=== PATIENT | female | born 1945 | race Caucasian/White ===

== ENCOUNTER 2020-04-23 10:15 | Emergency (ER) | payer MEDICARE, MEDICAID, SELFPAY ==
--- NOTE | ~2020-04-23 | XR_ITS ---
XR chest 1V portable DATE: 04/23/2020 11:20 INDICATION: Cough TECHNIQUE: Portable upright AP chest on 04/23/2020 at 1119 hours COMPARISON: None FINDINGS: Heart size is normal. No hilar or mediastinal enlargement. No pulmonary infiltrate or conso lidation, pleural effusion or pulmonary vascular congestion or pneumothorax. Old healed right sixth rib fracture deformity IMPRESSION: No active cardiopulmonary disease Reviewed, dictated and finalized at location A.
[2020-04-23 10:19] VITALS: BP 134/86; PULSE 80; RESP 18; TEMP 36.9; O2SAT 98
--- NOTE | 2020-04-23 10:33 | PC.NURSE ---
BS 373 upon arrival to ed.
--- NOTE | 2020-04-23 10:41 | PC.NURSE ---
ERP at bedside.
[2020-04-23 10:45] LABS: Glucose Point of Care 373 (65-105)
[2020-04-23] MEDS: SODIUM CHLORIDE 0.9% IV 1,000 ML 999 ML IV CONT (10:58)
--- NOTE | 2020-04-23 11:05 | ED.RECABL ---
HPI - Recheck/Abnormal Lab/Rx General Chief Complaint: Recheck/Abnormal Lab/Rx Stated Complaint: high blood sugar Time Seen by Provider: 04/23/20 10:19 History of Present Illness HPI narrative: Patient is a 74-year-old female who presents with family from assisted living noting that she had elevated glucose yesterday on outpatient testing referred back to emergency department per primary care for further evaluation patient notes she is compliant with her diabetes medicines denies any recent illness or trauma presents asymptomatic with no complaints notes that she had eaten before getting her testing yesterday as a possible etiology. Patient does have slight dementia but is a reliable historian today resting comfortably in the room alert and oriented x3 Related Data Home Medications Medication Instructions Recorded Confirmed diaper,brief,adult,disposable #14 each 10/02/19 donepezil 10 mg tablet 10 mg PO ONCE 10/02/19 glimepiride 4 mg tablet 4 mg PO QAM 10/02/19 lidocaine 5 % topical patch 1 patch TOPICAL DAILY 10/02/19 lovastatin 40 mg tablet 40 mg PO DAILY 10/02/19 insulin glargine 100 unit/mL (3 10 unit SUB-Q DAILY ml 10/25/19 10/25/19 mL) subcutaneous pen pen needle, diabetic, safety 30 #100 each 11/20/19 gauge x 1/3 Allergies Allergy/AdvReac Type Severity Reaction Status Date / Time insulin lispro Allergy Intermediate Hives Verified 11/20/19 13:53 [From Humalog U-100 Insulin] Review of Systems Review of Systems: All systems reviewed & are unremarkable except as noted in HPI and below PMFSH Past Medical History Medical History Arthritis Benign hypertension CKD (chronic kidney disease) stage 3, GFR 30-59 ml/min Dementia Mixed hyperlipidemia Type 2 diabetes mellitus with diabetic chronic kidney disease Urine incontinence Surgical History Surgical History Hx of hysterectomy Social History Social History Smoking status: Never smoker Second hand tobacco smoke exposure: No Alcohol intake: never Substance use: never Substance use type: does not use Gender identity (if verbalized by the patient): Female Exam Narrative: Exam Narrative: GENERAL: Well-appearing, well-nourished, and in no acute distress. HEAD: Normocephalic, atraumatic. EYES: PERRLA and EOMI. ENT: Nares clear, no rhinorrhea or epistaxis. Mucous membranes moist. CHEST: Clear to auscultation. No respiratory distress. No wheezes rales or rhonchi HEART: Regular rate and rhythm. No murmur heard. Normal peripheral pulses. ABDOMEN: Soft, nontender, nondistended EXTREMITIES: Normal range of motion. No edema. SKIN: Warm, dry, no rash. NEURO: No focal deficits. Alert and oriented x3. Cranial nerves II through XII grossly intact PSYCH: Normal mood and affect. Course Course Emergency Course: Patient in the room in no distress aware of case findings treatment plan and diagnosis agreeing to follow-up as directed or to return if symptoms worsen or concerns Consultations Consultation #1: Patient case discussed with primary care who will follow the patient in clinic Date: 04/23/20 Time: 13:02 Vital Signs Vital signs: Vital Signs Temperature 98.5 F 04/23/20 10:19 Pulse Rate 80 04/23/20 10:19 Respiratory Rate 18 04/23/20 10:19 Blood Pressure 134/86 04/23/20 10:19 Pulse Oximetry 98 04/23/20 10:19 Temperature 98.5 F 04/23/20 10:19 Pulse Rate 58 L 04/23/20 12:52 Respiratory Rate 18 04/23/20 12:52 Blood Pressure 151/83 H 04/23/20 12:52 Pulse Oximetry 99 04/23/20 12:52 MDM - Recheck/Abnormal Lab/Rx MDM Narrative Medical decision making narrative: Patient in the room in no distress absent hydrated in the emergency department asymptomatic resting comfortably felt appropriate for outpatient reevaluation agreeing to follow-up w
[2020-04-23 11:07] LABS: Basophils Absolute Auto 0.1 K/mm3 (0.0-0.1); Basophils Percent Auto 0.8 % (0.2-1.2); Eosinophils Absolute Auto 0.2 K/mm3 (0-0.3); Eosinophils Percent Auto 3.5 % (0-4.4); Hematocrit 41.4 % (37.0-47.0); Hemoglobin 13.8 g/dL (12.0-15.0); Immature Granulocyte Absolute 0.01 K/mm3 (0.00-0.031); Immature Granulocyte Percent A 0.2 % (0-0.5); Lymphocytes Absolute Auto 1.46 K/mm3 (0.9-3.2); Lymphocytes Percent Auto 22.5 % (18.3-44.2); Mean Corpuscular HGB Conc 33.3 g/dl (32-36); Mean Corpuscular Hemoglobin 29.1 pg (26-34); Mean Corpuscular Volume 87.3 fl (80-100); Mean Platelet Volume 10.7 fl (7.4-10.4); Monocytes Absolute Auto 0.4 K/mm3 (0.1-0.6); Monocytes Percent Auto 6.3 % (2.6-8.5); Neutrophils Absolute Auto 4.3 K/mm3 (1.3-6.7); Neutrophils Percent Auto 66.7 % (45.5-73.1); Platelet Count Result 172 k/mm3 (150-375); Red Blood Count 4.74 M/mm3 (4.2-5.4); Red Cell Distribution Width 12.1 % (11.5-14.5); White Blood Count 6.5 K/mm3 (4.5-10.0)
[2020-04-23 11:20] LABS: Alanine Aminotransferase 17 U/L (4-35); Albumin Level 3.9 g/dL (3.5-5.1); Alkaline Phosphatase 113 U/L (38-126); Aspartate Amino Transferase 20 U/L (14-36); Bilirubin,Total 0.4 mg/dL (0.2-1.3); Blood Urea Nitrogen 15 mg/dL (7-17); Calcium 8.9 mg/dL (8.4-10.2); Carbon Dioxide 28 mmol/L (22-30); Chloride 101 mmol/L (98-107); Estimated CRCL calculation 41 ml/min; Estimated Glomerular Filt Rate 54; Glucose 393 mg/dL (65-105); Magnesium 1.9 mg/dL (1.6-2.3); Phosphorus 4.2 mg/dL (2.5-4.5); Potassium 4.1 mmol/L (3.4-5.0); Sodium 134 mmol/L (137-145)
[2020-04-23 11:54] LABS: Add Urine Microscopic? YES; Appearance Urine Clear (Clear); Bacteria Urine Trace /hpf; Bilirubin Urine Negative (Negative); Blood Urine Negative (Negative); Color Urine Straw (Yellow); Glucose Urine UA 3+ mg/dL (Negative); Ketones Urine Negative (Negative); Leukocyte Esterase Ur Trace LEU/UL (Negative); Nitrate Urine Negative (Negative); Protein Urine Negative (Negative); RBC Urine 0-2 /hpf (0-2); Specific Grav Ur 1.026 (1.001-1.035); Squamous Epithelial Cell Urine Rare /hpf (Few); Urobilinogen Urine Negative mg/dL (<2.0); WBC Urine 21-30 /hpf
[2020-04-23 12:13] VITALS: BP 140/67; PULSE 61; RESP 18; O2SAT 97
[2020-04-23 12:52] VITALS: BP 151/83; PULSE 58; RESP 18; O2SAT 99
[2020-04-23 13:56] VITALS: BP 126/75; PULSE 65; RESP 13; O2SAT 98
== END 2020-04-23 14:00 ==
PROVIDERS: Emergency Medicine Emergency Medical Services; Emergency Provider Emergency Medicine; PCP Physician Assistant
DX: E11.65 Type 2 diabetes mellitus with hyperglycemia (principal); N39.0 Urinary tract infection, site not specified; E11.22 Type 2 diabetes mellitus with diabetic chronic kidney disease; I12.9 Hypertensive chronic kidney disease with stage 1 through stage 4 chronic kidney disease, or unspecified chronic kidney disease; N18.3 Chronic kidney disease, stage 3 (moderate); E78.2 Mixed hyperlipidemia
CPT/HCPCS: 36415; 71045; 80053; 81001; 82010; 82948; 83735; 84100; 85025; 87086; 87088; 96361; 96365; 99284; J0696; J7030

== ENCOUNTER 2020-08-06 14:10 | Outpatient (CLI) | payer MEDICARE, MEDICAID, SELFPAY ==
--- NOTE | ~2020-08-06 | XR_ITS ---
EXAMINATION: XR knee RT 3V EXAM DATE: 08/06/2020 14:47 INDICATION: Generalized right knee pain, no known injury. TECHNIQUE: Three projections of the right knee. There is no prior study for comparison. FINDINGS: No evidence osteochondral defect or joint body in the right knee joint. There is mild to moderate tricompartmental primary osteoarthritis. There are no acute fractures or dislocations identi fied. There is no subcutaneous gas. There is small joint effusion. There are no radiopaque foreig n bodies. IMPRESSION: 1. Mild to moderate right knee osteoarthritis. 2. Small joint effusion. Reviewed, dictated and finalized at location B.
== END 2020-08-06 14:11 | disposition home or self-care (01) ==
PROVIDERS: PCP Physician Assistant; Visit Provider Physician Assistant
DX: M25.561 Pain in right knee (principal); M17.11 Unilateral primary osteoarthritis, right knee; M25.461 Effusion, right knee
CPT/HCPCS: 73562

== ENCOUNTER 2021-05-27 07:50 | Outpatient (CLI) | payer MEDICARE, MEDICAID, SELFPAY ==
[2021-05-27 08:19] LABS: Hematocrit 45.5 % (37.0-47.0); Mean Corpuscular Hemoglobin 28.8 pg (26-34); Mean Corpuscular Volume 87.5 fl (80-100); Mean Platelet Volume 10.1 fl (7.4-10.4); Platelet Count Result 230 k/mm3 (150-375); Red Cell Distribution Width 12.5 % (11.5-14.5); White Blood Count 6.2 K/mm3 (4.5-10.0)
[2021-05-27 08:43] LABS: Cholesterol 179 mg/dL (0-200); HDL Direct 60 mg/dL; Triglycerides 129 mg/dL (<150)
[2021-05-27 08:56] LABS: LDL Cholesterol Direct 71 mg/dL
[2021-05-27 09:50] LABS: Folic Acid 18.8 ng/mL (2.76->20)
== END 2021-05-27 07:51 | disposition home or self-care (01) ==
PROVIDERS: PCP Physician Assistant; Visit Provider Physician Assistant
DX: R53.83 Other fatigue (principal); E11.22 Type 2 diabetes mellitus with diabetic chronic kidney disease; Z79.4 Long term (current) use of insulin; N18.30 Chronic kidney disease, stage 3 unspecified
CPT/HCPCS: 36415; 80061; 82607; 82746; 84443; 85027

== ENCOUNTER 2021-06-04 09:36 | Outpatient (CLI) | payer MEDICARE, MEDICAID, SELFPAY ==
[2021-06-04 10:20] LABS: Hemoglobin A1C 9.8 % (<5.7)
== END 2021-06-04 09:37 | disposition home or self-care (01) ==
LOC: ANHLAB 09:40
PROVIDERS: PCP Physician Assistant; Visit Provider Nurse Practitioner Family
DX: R73.09 Other abnormal glucose (principal)
CPT/HCPCS: 36415; 83036

== ENCOUNTER 2022-04-28 09:30 | Emergency (ER) | payer MEDICARE, MEDICAID, SELFPAY ==
[2022-04-28] VITALS (8 sets, daily range): BP systolic 131–146; BP diastolic 62–77; PULSE 88–101; RESP 14–24; TEMP 37.7; O2SAT 92–98
--- NOTE | ~2022-04-28 | CT_ITS ---
EXAMINATION: CT abdomen pelvis w con DATE: 04/28/2022 10:56 INDICATION: Nausea, vomiting and diarrhea starting this morning. TECHNIQUE: Computed tomography (CT) of the abdomen and pelvis was performed with 100 CC Omnipaque 300 intravenous contrast. Automated exposure control and iterative reconstruction technique were employe d. Exam dose: 1060.26 mGy-cm total exam DLP. COMPARISON: None. FINDINGS: The lung bases are clear of infiltrate or consolidation. Normal heart size. No pericardial or pleural effusion. The gallbladder is absent. No hepatic, splenic, pancreatic space-occupying mass lesion. Occasional pa ncreatic calcifications, consistent with chronic pancreatitis. No bile duct or pancreatic duct dilata tion. 1.6 x 1.9 cm right adrenal mass. Normal left adrenal gland. No renal mass lesion or urinary tract calculus or hydroureteronephrosis is evident. The urinary bladd er is relatively evacuated. Status post hysterectomy. Normal caliber and mild atherosclerotic calcification of the abdominal aorta. No intraperitoneal or r etroperitoneal or pelvic mass lesion or adenopathy or ascites is noted. The appendix is not visualized, likely resected. No bowel obstruction or intraperitoneal free air. Small fat-containing umbilical hernia. Degenerative change at the apophyseal joints with associated grade 1 anterolisthesis at L4-5. Multilevel degenerative disc disease degenerative disc disease, moderately severe at L2-3 and L3-4, s evere at L5-S1. No suspicious osteolytic or osteoblastic lesions. There is osteopenia. 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 Reviewed, dictated and finalized at location B.
--- NOTE | ~2022-04-28 | XR_ITS ---
EXAMINATION: XR chest 1V portable DATE: 04/28/2022 10:18 INDICATION: Cough TECHNIQUE: frontal view of the chest was obtained. COMPARISON: Chest radiograph dated 04/23/2020 FINDINGS: The lungs remain clear with no focal airspace opacities, pulmonary edema, pleural effusion or pneumot horax. The cardiomediastinal silhouette is normal. Mild to moderate degenerative skeletal changes in the spine and at the bilateral shoulders. IMPRESSION: 1. No acute cardiopulmonary disease. Reviewed, dictated and finalized at location A.
--- NOTE | 2022-04-28 09:39 | ECG_ITS ---
Measurements Intervals [place] Rate: 84 P: 61 PA: 176 QRS: -56 QRSD: 83 T: 75 QT: 371 QTc: 440 Interpretive Statements SINUS RHYTHM PATTERN CONSISTENT WITH PULMONARY DISEASE LEFT ANTERIOR FASCICULAR BLOCK [QRS AXIS <= -45, QR IN I, RS IN II] NONSPECIFIC T-WAVE ABNORMALITY NO PREVIOUS ECG AVAILABLE FOR COMPARISON Electronically Signed On 04-28-2022 12:45:18 CDT by Marbella Arias M.D.
[2022-04-28 09:59] LABS: Hematocrit 44.2 % (37.0-47.0); Hemoglobin 14.2 g/dL (12.0-15.0); Mean Corpuscular HGB Conc 32.1 g/dl (32-36); Mean Corpuscular Hemoglobin 28.7 pg (26-34); Mean Corpuscular Volume 89.5 fl (80-100); Mean Platelet Volume 9.5 fl (7.4-10.4); Platelet Count Result 189 k/mm3 (150-375); Red Blood Count 4.94 M/mm3 (4.2-5.4); Red Cell Distribution Width 12.5 % (11.5-14.5); White Blood Count 10.9 K/mm3 (4.5-10.0)
[2022-04-28 10:14] LABS: Alanine Aminotransferase 20 U/L (6-35); Albumin Level 4.1 g/dL (3.5-5.1); Alkaline Phosphatase 123 U/L (38-126); Anion Gap 7 mmol/L (8-16); Aspartate Amino Transferase 26 U/L (14-36); Bilirubin,Total 0.4 mg/dL (0.2-1.3); Blood Urea Nitrogen 17 mg/dL (7-17); Calcium 8.9 mg/dL (8.4-10.2); Carbon Dioxide 28 mmol/L (22-30); Chloride 104 mmol/L (98-107); Estimated CRCL calculation 36 ml/min; Estimated Glomerular Filt Rate 48; Glucose 181 mg/dL (65-110); Potassium 3.7 mmol/L (3.4-5.0); Sodium 139 mmol/L (137-145)
[2022-04-28 10:27] LABS: Appearance Urine Cloudy (Clear); Bilirubin Urine Negative (Negative); Blood Urine 1+ (Negative); Color Urine Yellow (Yellow); Glucose Urine UA Trace mg/dL (Negative); Ketones Urine 2+ mg/dL (Negative); Leukocyte Esterase Ur 1+ LEU/UL (Negative); Nitrate Urine Positive (Negative); Protein Urine Trace mg/dL (Negative); Urobilinogen Urine 0.2 mg/dL (<2.0); pH Urine 5.5 (5.0-9.0)
[2022-04-28 10:32] LABS: Band Neutrophils Percent 13 % (0-6); Lymphocytes Absolute Manual 0.54 K/mm3 (1.1-4.5); Monocytes Absolute Manual 0.98 K/mm3 (0.1-0.90); Monocytes Percent Manual 9 % (3-9); Neutrophils Absolute Manual 9.37 K/mm3 (1.7-7.2); Neutrophils Percent Manual 73 % (46-73); Platelet Estimate Adequate (Adequate); Total Cells Counted 100
[2022-04-28 10:34] LABS: Bacteria Urine Trace /hpf; Mucus Urine Rare /lpf; Squamous Epithelial Cell Urine Rare /hpf (Few); WBC Urine >75 /hpf
[2022-04-28 10:37] LABS: Add Urine Microscopic? YES
--- NOTE | 2022-04-28 10:38 | ED.NAVMDI ---
HPI - Nausea/Vomiting/Diarrhea General Chief complaint: Nausea/Vomiting/Diarrhea Stated complaint: n/v Time Seen by Provider: 04/28/22 09:46 Source: patient, RN notes reviewed and other History of Present Illness HPI Narrative: Patient presents from [facility] for nausea vomiting and lethargy. Patient noted to be slightly more somnolent this morning than usual she also found to have emesis on her that nonbloody so she was referred to the ER for further evaluation. Patient has no complaints she does not remember vomiting. Patient is unsure as why she is here. She has no complaints of abdominal pain chest pain or shortness of breath. Patient does report a mild cough. Denies any fevers. Related Data Home Medications Medication Instructions Recorded Confirmed diaper,brief,adult,disposable #14 ea 10/02/19 04/06/22 (Depend Underwear For Women Large) donepezil 10 mg tablet 10 mg PO ONCE 10/02/19 04/06/22 lovastatin 40 mg tablet 40 mg PO DAILY 10/02/19 04/06/22 Allergies Allergy/AdvReac Type Severity Reaction Status Date / Time insulin lispro Allergy Intermediate Hives Verified 04/06/22 09:07 [From Humalog U-100 Insulin] Review of Systems Review of Systems: CONSTITUTIONAL: Denies fever, chills, or sweats. EYES: Denies visual changes, redness, or discharge. ENT: Denies rhinorrhea, congestion, sore throat, or otalgia. CARDIOVASCULAR: Denies chest pain, palpitations, or edema. RESPIRATORY: Patient reports cough GASTROINTESTINAL: Denies abdominal pain, nausea, vomiting, or diarrhea. GENITOURINARY: Denies dysuria or hematuria. SKIN: Denies rash or itching. MUSCULOSKELETAL: Denies back pain, joint pain, or myalgia. NEUROLOGIC: Denies headache, numbness, dizziness, or weakness. PSYCHIATRIC: Denies anxiety or depression. All systems reviewed & are unremarkable except as noted in HPI and below PMFSH Past Medical History Medical History Arthritis Back pain Benign hypertension CKD (chronic kidney disease) stage 3, GFR 30-59 ml/min Degenerative joint disease of knee Dementia Diabetes Fibromyalgia Hepatitis High cholesterol Mixed hyperlipidemia Osteoporosis Type 2 diabetes mellitus with diabetic chronic kidney disease Urine incontinence Wears glasses Surgical History Surgical History History of total left knee replacement Hx of hysterectomy Family History Family History Father Family history of lung cancer, Onset Age: 65 Social History Social History Smoking status: Never smoker Second hand tobacco smoke exposure: No Alcohol intake: never Substance use: never Substance use type: does not use Gender identity (if verbalized by the patient): Female Exam Narrative: GENERAL: Well-appearing, well-nourished, and in no acute distress. HEAD: Normocephalic, atraumatic. EYES: PERRLA and EOMI. ENT: Nares clear, no rhinorrhea or epistaxis. Mucous membranes moist. NECK: Supple. No masses. No JVD CHEST: Clear to auscultation. No respiratory distress. No wheezes rales or rhonchi HEART: Regular rate and rhythm. No murmur heard. Normal peripheral pulses. ABDOMEN: Soft, nontender, nondistended, normal active bowel sounds. EXTREMITIES: Normal range of motion. No edema. SKIN: Warm, dry, no rash. NEURO: No focal deficits. Alert and oriented x3. PSYCH: Normal mood and affect. Course Reevaluation(s) Reevaluation #1: Patient reports feeling much improved is alert and oriented x4 patient feels like she can manage her symptoms at her nursing facility family is comfortable with outpatient plan. Date: 04/28/22 Time: 13:24 Vital Signs Vital signs: Vital Signs Temperature 37.7 C H 04/28/22 09:34 Pulse Rate 93 04/28/22 09:34 Respiratory Rate 20 04/28/22 09:34 Blood Pr
[2022-04-28 10:42] LABS: Lipase 137 U/L (23-300)
[2022-04-28] MEDS: SODIUM CHLORIDE 0.9% IV 500 ML 999 ML IV CONT (10:42)
[2022-04-28 10:52] LABS: Lactic Acid Reflex 1.1 mmol/L (0.7-2.0)
--- NOTE | 2022-04-28 13:27 | PC.NURSE ---
Verbal order to hold Keflex per Dr. Fitzpatrick
== END 2022-04-28 13:44 ==
PROVIDERS: Emergency Provider Emergency Medicine; PCP Physician Assistant
DX: N39.0 Urinary tract infection, site not specified (principal); R11.2 Nausea with vomiting, unspecified; M19.90 Unspecified osteoarthritis, unspecified site; I12.9 Hypertensive chronic kidney disease with stage 1 through stage 4 chronic kidney disease, or unspecified chronic kidney disease; E11.22 Type 2 diabetes mellitus with diabetic chronic kidney disease; N18.30 Chronic kidney disease, stage 3 unspecified; F03.90 Unspecified dementia, unspecified severity, without behavioral disturbance, psychotic disturbance, mood disturbance, and anxiety; E78.5 Hyperlipidemia, unspecified; M79.7 Fibromyalgia
CPT/HCPCS: 36415; 51701; 71045; 74177; 80053; 81001; 83605; 83690; 85025; 87077; 87086; 87186; 93005; 96365; 99284; J0696; J7040; Q9967

== ENCOUNTER 2022-05-12 10:33 | Outpatient (CLI) | payer MEDICARE, MEDICAID, SELFPAY ==
--- NOTE | ~2022-05-12 | MR_ITS ---
EXAMINATION: MR abdomen wo/w con DATE: 05/12/2022 11:39 INDICATION: Adrenal mass. TECHNIQUE: Magnetic resonance imaging (MRI) of the abdomen was performed without and with 17 mL Multi Razia intravenous contrast. COMPARISON: CT abdomen and pelvis 04/28/2022 FINDINGS: The liver is normal. There are changes of cholecystectomy. There are cysts in the spleen measuring up to 4 mm. There is a 6 mm cystic lesion in the pancreas. The left adrenal gland is normal. There is a 2.0 cm mass in right adrenal gland without fat. Right kidney is normal. There is mild atrophy of lef t kidney. There are no dilated loops of bowel. There are no pathologically enlarged lymph nodes. Ther e is no free intraperitoneal fluid. IMPRESSION: 1. 2.0 cm mass in right adrenal gland. In the absence of known malignancy, this finding is likely an adenoma. 2. 6 mm cystic lesion of pancreas. The differential diagnosis includes pseudocyst, intraductal papill krystle mucinous neoplasm (IPMN), mucinous cystic neoplasm (MCN), serous cystadenoma, and neuroendocrine tumor. Abdomen MRI without and with contrast is recommended in 2 years. Reviewed, dictated and finalized at location A. IMPRESSION: 1. 2.0 cm mass in right adrenal gland. In the absence of known malignancy, this finding is likely an adenoma. 2. 6 mm cystic lesion of pancreas. The differential diagnosis includes pseudocy st, intraductal papillary mucinous neoplasm (IPMN), mucinous cystic neoplasm (M CN), serous cystadenoma, and neuroendocrine tumor. Abdomen MRI without and with contrast is recommended in 2 years.
== END 2022-05-12 10:34 | disposition home or self-care (01) ==
PROVIDERS: PCP Physician Assistant; Visit Provider Physician Assistant
DX: E27.8 Other specified disorders of adrenal gland (principal); K86.2 Cyst of pancreas
CPT/HCPCS: 74183; A9577

== ENCOUNTER 2023-05-24 07:32 | Outpatient (CLI) | payer MEDICARE, MEDICAID, SELFPAY ==
[2023-05-24 08:28] LABS: Basophils Absolute Auto 0.1 K/mm3 (0.0-0.1); Basophils Percent Auto 1.1 % (0.2-1.2); Eosinophils Absolute Auto 0.3 K/mm3 (0-0.3); Eosinophils Percent Auto 4.7 % (0-4.4); Hematocrit 44.2 % (37.0-47.0); Hemoglobin 15.9 g/dL (12.0-15.0); Immature Granulocyte Absolute 0.01 K/mm3 (0.00-0.031); Immature Granulocyte Percent A 0.2 % (0-0.5); Lymphocytes Absolute Auto 1.72 K/mm3 (0.9-3.2); Lymphocytes Percent Auto 31.2 % (18.3-44.2); Mean Corpuscular Hemoglobin 32.1 pg (26-34); Mean Corpuscular Volume 89.3 fl (80-100); Mean Platelet Volume 10.5 fl (7.4-10.4); Monocytes Absolute Auto 0.4 K/mm3 (0.1-0.6); Monocytes Percent Auto 6.5 % (2.6-8.5); Neutrophils Absolute Auto 3.1 K/mm3 (1.3-6.7); Neutrophils Percent Auto 56.3 % (45.5-73.1); Platelet Count Result 283 k/mm3 (150-375); Red Blood Count 4.95 M/mm3 (4.2-5.4); Red Cell Distribution Width 12.6 % (11.5-14.5); White Blood Count 5.5 K/mm3 (4.5-10.0)
[2023-05-24 09:32] LABS: Free T4 Free Thyroxine 1.23 ng/mL (0.78-2.19)
[2023-05-24 09:54] LABS: Alanine Aminotransferase 24 U/L (6-35); Albumin Level 4.2 g/dL (3.5-5.1); Alkaline Phosphatase 102 U/L (38-126); Anion Gap 7 mmol/L (8-16); Aspartate Amino Transferase 24 U/L (14-36); Bilirubin,Total 0.5 mg/dL (0.2-1.3); Blood Urea Nitrogen 15 mg/dL (7-17); Calcium 9.5 mg/dL (8.4-10.2); Carbon Dioxide 29 mmol/L (22-30); Chloride 106 mmol/L (98-107); Cholesterol 179 mg/dL (0-200); Estimated Glomerular Filt Rate 60; Glucose 136 mg/dL (65-110); HDL Direct 53 mg/dL; Potassium 3.6 mmol/L (3.4-5.0); Sodium 142 mmol/L (137-145); Triglycerides 104 mg/dL (<150)
[2023-05-24 10:06] LABS: LDL Cholesterol Direct 77 mg/dL
[2023-05-24 17:24] LABS: Appearance Urine Cloudy (Clear); Bacteria Urine 4+ /hpf; Bilirubin Urine Negative (Negative); Blood Urine Trace (Negative); Color Urine Yellow (Yellow); Glucose Urine UA 3+ mg/dL (Negative); Ketones Urine Trace mg/dL (Negative); Leukocyte Esterase Ur 2+ LEU/UL (NEGATIVE); Nitrate Urine Positive (Negative); Non Pathogenic Casts 0-2; Protein Urine Trace mg/dL (Negative); Specific Grav Ur 1.032 (1.001-1.035); Squamous Epithelial Cell Urine Few /hpf (Few); WBC Urine 51-100 /hpf (0-3); pH Urine 5.5 (5.0-9.0)
[2023-05-24 17:27] LABS: Add Urine Microscopic? YES
[2023-05-24 19:57] LABS: Creatinine Urine 158.4 mg/dL; MALB Creatinine Ratio 22.9 mg/g (0-30); Microalbumin Urine Random 36.3 mg/L (0-16.7)
== END 2023-05-24 07:33 | disposition home or self-care (01) ==
PROVIDERS: Nurse Practitioner Family; PCP Physician Assistant; Visit Provider Physician Assistant
DX: E11.22 Type 2 diabetes mellitus with diabetic chronic kidney disease (principal); E78.2 Mixed hyperlipidemia; R53.83 Other fatigue; I12.9 Hypertensive chronic kidney disease with stage 1 through stage 4 chronic kidney disease, or unspecified chronic kidney disease; N18.30 Chronic kidney disease, stage 3 unspecified
CPT/HCPCS: 36415; 80053; 80061; 81001; 82043; 82306; 82607; 84439; 84443; 85025; 87077; 87086; 87186

== ENCOUNTER 2024-07-31 07:19 | Emergency (ER) | payer MEDICARE, MEDICAID, SELFPAY ==
--- NOTE | ~2024-07-31 | XR_ITS ---
XR chest 1V portable Ordering provider: Ren Junior MD History: 79 years Female with . Fall, PAIN . Comparison: None. FINDINGS: MEDIASTINUM: The cardiac silhouette is not enlarged. LUNGS: No infiltrates, effusions or pneumothorax. OTHER: No free air under the diaphragm. Degenerative changes of the spine. IMPRESSION: No acute cardiopulmonary pathology. Reviewed, dictated and finalized at location A.
--- NOTE | ~2024-07-31 | XR_ITS ---
XR hip LT 2V w AP pelvis Ordering provider: Ren Junior MD History: . Fall, Left hip pain . Comparison: None. FINDINGS: BONES: No acute fracture or dislocation. HIP JOINT SPACES: Mild to moderate osteoarthritic changes. SACROILIAC JOINT SPACES/LUMBAR SPINE: The sacroiliac joint spaces shows bilateral sacroiliitis.. Mild degenerative changes of the visualized lower lumbar spine. PUBIC SYMPHYSIS: Normal. SOFT TISSUES: Normal. IMPRESSION: No definite acute osseous abnormality pelvis and left hip. if still clinically suspicious CT is advised. Reviewed, dictated and finalized at location A.
--- NOTE | ~2024-07-31 | CT_ITS ---
CT brain wo con Ordering provider: Ren Junior MD History: 79 years Female with . Fall . Comparison: None. Technique: CT of the head without contrast. Radiation reduction technique utilized. The dose-length product was 605.33 mGy-cm. FINDINGS: BRAIN PARENCHYMA AND CSF SPACES: Left frontoparietal acute subdural hematoma is seen which measures 7 mm in thickness. Small focal right parietal intracerebral hematoma is seen measuring 6 mm. Mild leuk oaraiosis and diffuse cortical atrophy. Mild atheromatous disease. No midline shift, or mass effect. The brain parenchyma and CSF spaces are otherwise normal. VISUALIZED PARANASAL SINUSES: Well aerated. MASTOIDS: Well aerated. BONES: The bones appear intact. SOFT TISSUES: Visualized nasopharynx is normal. Superficial soft tissues are normal. IMPRESSION: Left frontoparietal acute subdural hematoma. Right parietal intracerebral small hematoma. Physician: Ren Junior MD Was notified with the result of the patient at 9:12 AM on July 31, 2024. Reviewed, dictated and finalized at location A.
--- NOTE | ~2024-07-31 | CT_ITS ---
CT pelvis wo con Ordering provider: Ren Junior MD History: . L hip pain. negative xr . Comparison: None. Technique: CT pelvis without oral and IV contrast. . Automated exposure control and iterative recons truction technique were employed. The dose-length product was 326.00 mGy-cm. Findings: BONES: Nondisplaced fracture is seen in the left femoral neck in the subcapital area. All Age appropr iate degenerative changes of the visualized lower lumbar spine. The hip and sacroiliac joint spaces a re well maintained. SUPERFICIAL SOFT TISSUES: Normal. PELVIC ORGANS: The bladder is normal. VISUALIZED BOWEL AND MESENTERY: Normal. No free air or free fluid. No lymphadenopathy. RETROPERITONEUM: Mild atheromatous disease. IMPRESSION: Fracture left femoral neck Reviewed, dictated and finalized at location A. IMPRESSION: Fracture left femoral neck
--- NOTE | ~2024-07-31 | CT_ITS ---
CT cervical spine wo con Ordering provider: Ren Junior MD History: . Fall . Comparison: None. Technique: CT of the cervical spine was performed without contrast. Sagittal and coronal reformatted images were also obtained and reviewed. Automated exposure control and iterative reconstruction shelbi hnique were employed. The dose-length product was 269.97 mGy-cm. FINDINGS: VERTEBRAE: No subluxation or acute fracture. The occipital condyles are intact. Degenerative changes of the spine. Sclerotic lesion is seen in the left side of C4. Follow-up advised. DISC SPACES: Narrowing of the disc C5-C6, C6-C7 and C7-T1.. Multilevel facet joint disease. Multileve l uncovertebral joint osteoarthritic changes. Narrowing of the bilateral foramina at the level of C3- C4, C4-C5, and left C6-C7. PARASPINOUS SOFT TISSUES: Normal. IMPRESSION: No acute osseous abnormality cervical spine. Multilevel degenerative disc disease. Reviewed, dictated and finalized at location A.
[2024-07-31 07:22] VITALS: BP 165/94; PULSE 82; RESP 14; TEMP 36.5; O2SAT 99
--- NOTE | 2024-07-31 07:22 | ECG_ITS ---
Test Date: 2024-07-31 07:28:43 Measurements Intervals [place] Rate: 72 P: 54 SD: 151 QRS: -44 QRSD: 86 T: 67 QT: 393 QTc: 431 Interpretive Statements SINUS RHYTHM MARKED LEFT AXIS DEVIATION [QRS AXIS < -30] No previous ECG available for comparison Electronically Signed On 07-31-2024 10:10:50 CDT by Shiv Amador M.D.
[2024-07-31 08:00] LABS: Basophils Absolute Auto 0.1 K/mm3 (0.0-0.1); Basophils Percent Auto 0.4 % (0.2-1.2); Eosinophils Absolute Auto 0.1 K/mm3 (0-0.3); Eosinophils Percent Auto 0.6 % (0-4.4); Hemoglobin 13.6 g/dL (12.0-15.0); Immature Granulocyte Absolute 0.04 K/mm3 (0.00-0.031); Immature Granulocyte Percent A 0.3 % (0-0.5); Lymphocytes Absolute Auto 0.84 K/mm3 (0.9-3.2); Mean Corpuscular HGB Conc 32.4 g/dl (32-36); Mean Corpuscular Hemoglobin 28.9 pg (26-34); Mean Corpuscular Volume 89.4 fl (80-100); Mean Platelet Volume 10.2 fl (7.4-10.4); Monocytes Absolute Auto 0.7 K/mm3 (0.1-0.6); Monocytes Percent Auto 5.6 % (2.6-8.5); Neutrophils Absolute Auto 10.3 K/mm3 (1.3-6.7); Neutrophils Percent Auto 86.1 % (45.5-73.1); Platelet Count Result 240 k/mm3 (150-375); Red Cell Distribution Width 13.2 % (11.5-14.5)
[2024-07-31 08:04] LABS: Alanine Aminotransferase 20 U/L (6-35); Albumin Level 4.1 g/dL (3.5-5.1); Alkaline Phosphatase 121 U/L (38-126); Anion Gap 4 mmol/L (4-12); Aspartate Amino Transferase 28 U/L (14-36); Bilirubin,Total 0.6 mg/dL (0.2-1.3); Blood Urea Nitrogen 13 mg/dL (7-17); Calcium 9.3 mg/dL (8.4-10.2); Carbon Dioxide 30 mmol/L (22-30); Chloride 103 mmol/L (98-107); Estimated CRCL calculation 53 ml/min; Estimated Glomerular Filt Rate > 60; Glucose 178 mg/dL (65-110); Potassium 3.5 mmol/L (3.4-5.0); Sodium 137 mmol/L (137-145)
[2024-07-31 08:43] VITALS: BP 157/74; PULSE 71; RESP 20; O2SAT 98
[2024-07-31] MEDS: KETOROLAC 15 MG/ML VIAL (*BKC) IV PUSH (09:14)
--- NOTE | 2024-07-31 10:09 | ED.GENADULT ---
HPI - General Adult General Chief complaint: Fall Stated complaint: fall Time Seen by Provider: 07/31/24 07:21 History of Present Illness HPI narrative: 79-year-old female with dementia presenting after a fall. The patient is A&O x1 which is baseline and does not remember the fall. She is complaining of pain in her left hip. She is denying headache or head trauma although she is a poor historian. No use of blood thinners. Denies chest pain abdominal pain or breathing. Related Data Home Medications Medication Instructions Recorded Confirmed lovastatin 40 mg tablet 40 mg PO DAILY 10/02/19 06/07/24 donepezil 10 mg tablet 10 mg PO DAILY 01/24/23 06/07/24 Allergies Allergy/AdvReac Type Severity Reaction Status Date / Time insulin lispro Allergy Intermediate Hives Verified 01/17/24 08:35 [From Humalog U-100 Insulin] [facility] Past Medical History Medical History Adrenal mass Arthritis Back pain Benign hypertension Cerebral atherosclerosis Chronic GERD CKD (chronic kidney disease) stage 3, GFR 30-59 ml/min Degenerative joint disease of knee Dementia Diabetes Essential (primary) hypertension Fibromyalgia Hepatitis High cholesterol Mixed hyperlipidemia Osteoporosis Type 2 diabetes mellitus with diabetic chronic kidney disease Unstable gait Urine incontinence Wears glasses Surgical History Surgical History History of total left knee replacement Hx of hysterectomy Family History Family History Father Family history of lung cancer, Onset Age: 65 Social History Social History Smoking status: Never smoker Second hand tobacco smoke exposure: No Alcohol intake: never Substance use: never Lack of Transportation: No Lack of Food: Never True Current Housing: I Have Housing Concerned About Future Housing: No Difficulty Paying Gas/Electric Bills: No Difficulty Paying for Meds: No Currently Unemployed: No Education: Bachelor's Degree Difficulty w/ Childcare or Family Care: No Living arrangements: assisted living Occupation/Education: retired Gender identity (if verbalized by the patient): Female Exam Narrative: APPEARANCE: No apparent distress. Head: Bruise over the left forehead at the hairline EYES: EOMI, NOSE: Atraumatic NECK: Trachea midline RESPIRATORY: No increased rate of breathing clear to auscultation CARDIOVASCULAR: RRR, no peripheral edema, pulses intact in 4/4 extremities ABDOMINAL: Non-distended, soft nontender MUSCULOSKELETAl: Head to toe trauma exam performed which showed a bruise over the left forehead as well as exquisite pain in the left hip with active and passive motion. NEURO: Alert. Cranial nerves 2-12 grossly intact. Sensation light touch, motor function cerebellar function intact for 4 extremities. Gait exam was normal. SKIN:: Warm, dry. Normal color PSYCHIATRIC: Normal affect Course Vital Signs Vital signs: Vital Signs Temperature 97.7 F 07/31/24 07:22 Pulse Rate 82 07/31/24 07:22 Respiratory Rate 14 07/31/24 07:22 Blood Pressure 165/94 H 07/31/24 07:22 Pulse Oximetry 99 07/31/24 07:22 Oxygen Delivery Room Air 07/31/24 07:22 Temperature 97.7 F 07/31/24 07:22 Pulse Rate 71 07/31/24 08:43 Respiratory Rate 20 07/31/24 08:43 Blood Pressure 157/74 H 07/31/24 08:43 Pulse Oximetry 98 07/31/24 08:43 Oxygen Delivery Room Air 07/31/24 07:22 Medical Decision Making MDM Narrative Medical decision making narrative: -Course: 79-year-old female with dementia presenting after an unwitnessed fall his fall. Trauma workup positive for a left-sided subdural and right-sided intraparenchymal bleed. No blood thinners. Neurologic exam is normal and she is at her baseline mental sta
[2024-07-31 11:55] VITALS: BP 141/67; PULSE 74; RESP 14; O2SAT 97
== END 2024-07-31 12:24 | disposition short-term general hospital (02) ==
PROVIDERS: Emergency Provider Emergency Medicine; PCP Physician Assistant
DX: S06.5X0A Traumatic subdural hemorrhage without loss of consciousness, initial encounter (principal); S06.360A Traumatic hemorrhage of cerebrum, unspecified, without loss of consciousness, initial encounter; S72.012A Unspecified intracapsular fracture of left femur, initial encounter for closed fracture; W19.XXXA Unspecified fall, initial encounter; F03.90 Unspecified dementia, unspecified severity, without behavioral disturbance, psychotic disturbance, mood disturbance, and anxiety; I12.9 Hypertensive chronic kidney disease with stage 1 through stage 4 chronic kidney disease, or unspecified chronic kidney disease; E11.22 Type 2 diabetes mellitus with diabetic chronic kidney disease; N18.30 Chronic kidney disease, stage 3 unspecified; E78.2 Mixed hyperlipidemia; M81.0 Age-related osteoporosis without current pathological fracture; K21.9 Gastro-esophageal reflux disease without esophagitis; M79.7 Fibromyalgia; Z96.652 Presence of left artificial knee joint; Z79.4 Long term (current) use of insulin; Z79.84 Long term (current) use of oral hypoglycemic drugs; Z79.85 Long-term (current) use of injectable non-insulin antidiabetic drugs
CPT/HCPCS: 36415; 70450; 71045; 72125; 72192; 73502; 80053; 85025; 93005; 96374; 99285; J1885

== ENCOUNTER 2024-09-13 11:45 | Inpatient (IN) | payer MEDICARE, MEDICAID, SELFPAY ==
[2024-09-13] VITALS (38 sets, daily range): BP systolic 84–127; BP diastolic 40–74; PULSE 67–101; RESP 11–24; TEMP 36.4–36.8; O2SAT 70–100; BMI 29.0
--- NOTE | ~2024-09-13 | CT_ITS ---
EXAMINATION: CTA chest PE protocol DATE: 09/13/2024 16:17 INDICATION: Weakness. Tachycardia. TECHNIQUE: Computed tomography angiography (CTA) of the chest was performed with 100 mL Omnipaque-350 intravenous contrast timed to evaluate the pulmonary arteries. Coronal maximum intensity projection 3D-reconstructions were created by the technologist. Automated exposure control and iterative reconst ruction technique were employed. The dose-length product was 577.05 mGy-cm. COMPARISON: CT abdomen and pelvis 09/13/2024, 04/28/2022 FINDINGS: The lungs demonstrate mild atelectasis. No pleural effusion. There are nodules in the thyro id measuring up to 6 mm, likely not clinically significant. The heart size is normal. There are coron krystle artery calcifications. No pericardial effusion. There is mild mediastinal lymphadenopathy, likely reactive. There is a chronic 1.9 cm mass in right adrenal gland, likely an adenoma. There is an old healed fracture of right sixth rib. There is moderate thoracic spondylosis. IMPRESSION: 1. No pulmonary embolus. Reviewed, dictated and finalized at location A. ING MIXER IMPRESSION: 1. No pulmonary embolus.
--- NOTE | ~2024-09-13 | XR_ITS ---
EXAMINATION: XR chest 1V DATE: 09/13/2024 14:07 INDICATION: Generalized weakness. TECHNIQUE: A single frontal view of the chest was obtained. COMPARISON: Chest single view 07/31/2024, CT abdomen and pelvis 09/13/2024 FINDINGS: There is no pneumonia, pleural effusion, or pneumothorax. The heart size is normal. There i s an old healed fracture of right sixth rib. IMPRESSION: 1. No acute cardiopulmonary disease. Reviewed, dictated and finalized at location A. LER TENDER
--- NOTE | ~2024-09-13 | CT_ITS ---
EXAMINATION: CT cervical spine wo con DATE: 09/13/2024 14:20 INDICATION: Neck pain. TECHNIQUE: Computed tomography (CT) of the cervical spine was performed without intravenous contrast. Automated exposure control and iterative reconstruction technique were employed. The dose-length pro duct was 243.86 mGy-cm. COMPARISON: CT cervical spine 07/31/2024 FINDINGS: The patient's head is rotated to her right. There is 3 degrees levocurvature of cervical sp ine. Vertebral body heights are normal. There is a benign bone island in C4 vertebral body. There is mildly decreased disc height at C3-C4 and severely decreased disc height at C5-C6. There is severely decreased disc height at C6-C7 with interbody fusion. There is severely decreased disc height at C7-T 1. The following disc levels are specifically discussed: C2-C3: There is no uncovertebral joint osteoarthritis. There is severe bilateral facet joint osteoart hritis. There is mild left neural foraminal stenosis. There is no central canal stenosis. C3-C4: There is severe bilateral uncovertebral joint osteoarthritis. There is severe right and modera te left facet joint osteoarthritis. There is mild bilateral neural foraminal stenosis. There is mild central canal stenosis. C4-C5: There is mild bilateral uncovertebral joint osteoarthritis. There is severe bilateral facet maria esther int osteoarthritis. There is mild bilateral neural foraminal stenosis. There is mild central canal st enosis. C5-C6: There is severe bilateral uncovertebral joint osteoarthritis. There is severe bilateral facet joint osteoarthritis. There is mild bilateral neural foraminal stenosis. There is mild central canal stenosis. C6-C7: There is mild right and severe left uncovertebral joint hypertrophy. There is no facet joint o steoarthritis. There is mild left neural foraminal stenosis. There is mild central canal stenosis. C7-T1: There is moderate bilateral uncovertebral joint osteoarthritis. There is severe bilateral face t joint osteoarthritis. There is mild bilateral neural foraminal stenosis. There is mild central autumn l stenosis. IMPRESSION: 1. No fracture. 2. Severe cervical spondylosis. Reviewed, dictated and finalized at location A. STITCHER
--- NOTE | ~2024-09-13 | CT_ITS ---
EXAMINATION: CT brain wo con DATE: 09/13/2024 14:03 INDICATION: Generalized weakness. TECHNIQUE: Computed tomography (CT) of the head was performed without intravenous contrast. The mA wa s adjusted according to patient size. Iterative reconstruction technique was employed. The dose-lengt h product was 681.00 mGy-cm. COMPARISON: Head CT 07/31/2024 FINDINGS: There are scattered areas of low attenuation in the cerebral white matter. There is a left parietal subdural hematoma that is hypodense to costello matter with maximum thickness of 4 mm. There is a 3 mm hyperdense mass in right parietal lobe with decrease in size from 07/31/2024, consistent with h ematoma. There is no acute ischemic infarct or abnormal mass lesion. The ventricles are normal in siz e. The orbits are normal. There is mild mucosal thickening in the paranasal sinuses. The mastoid air cells are normal. IMPRESSION: 1. Small subacute subdural hematoma overlying left parietal lobe with decrease in size from 07/31/2024 . 2. 3 mm intraparenchymal hematoma in right parietal lobe with decrease in size from 07/31/2024. 3. Stable extensive nonspecific cerebral white matter disease, which likely represents chronic small vessel ischemic disease. Reviewed, dictated and finalized at location A. EOLOGIST IMPRESSION: 1. Small subacute subdural hematoma overlying left parietal lobe with decrease in size from 07/31/2024. 2. 3 mm intraparenchymal hematoma in right parietal lobe with decrease in size from 07/31/2024. 3. Stable extensive nonspecific cerebral white matter disease, which likely rep resents chronic small vessel ischemic disease.
--- NOTE | ~2024-09-13 | CT_ITS ---
EXAMINATION: CT abdomen pelvis w con DATE: 09/13/2024 14:20 INDICATION: Nausea and vomiting. Anemia. TECHNIQUE: Computed tomography (CT) of the abdomen and pelvis was performed with 100 mL Omnipaque 350 intravenous contrast. Automated exposure control and iterative reconstruction technique were employe d. The dose-length product was 874.09 mGy-cm. COMPARISON: CT pelvis 07/31/2024, CT abdomen and pelvis 04/28/2022 FINDINGS: The visualized portions of lung bases demonstrate mild atelectasis. No pleural effusion. Th e heart size is normal. No pericardial effusion. The liver is normal. There are multiple hypodense ma sses in the spleen measuring up to 9 mm, likely granulomatous disease. The gallbladder is absent. The pancreas and left adrenal gland are normal. There is a 1.9 cm mass in the right adrenal gland, stabl e from 04/28/2022, likely an adenoma. There is cortical thinning of the kidneys. There are no dilated loops of bowel. The appendix is not visualized. There are no pathologically enlarged lymph nodes. The re is no free intraperitoneal fluid. There is a left hip bipolar hemiarthroplasty. There is severe katya mbar spondylosis. IMPRESSION: 1. No etiology for the patient's symptoms. Reviewed, dictated and finalized at location A. INSTALLER
--- NOTE | 2024-09-13 11:58 | PC.NURSE ---
1L NS from EMS continued for pts blood pressure.
[2024-09-13 12:30] LABS: Hematocrit 31.8 % (37.0-47.0); Hemoglobin 10.1 g/dL (12.0-15.0); Mean Corpuscular HGB Conc 31.8 g/dl (32-36); Mean Corpuscular Hemoglobin 28.7 pg (26-34); Mean Corpuscular Volume 90.3 fl (80-100); Mean Platelet Volume 9.7 fl (7.4-10.4); Platelet Count Result 188 k/mm3 (150-375); Red Blood Count 3.52 M/mm3 (4.2-5.4); Red Cell Distribution Width 14.3 % (11.5-14.5); White Blood Count 13.8 K/mm3 (4.5-10.0)
[2024-09-13 12:45] LABS: Band Neutrophils Percent 19 % (0-6); Lymphocytes Absolute Manual 0.82 K/mm3 (1.1-4.5); Monocytes Absolute Manual 0.27 K/mm3 (0.1-0.90); Monocytes Percent Manual 2 % (3-9); Neutrophils Absolute Manual 12.69 K/mm3 (1.7-7.2); Neutrophils Percent Manual 73 % (46-73); Platelet Estimate Adequate (Adequate); Schistocytes None Seen; Total Cells Counted 100
[2024-09-13 13:09] LABS: Add Urine Microscopic? YES; Appearance Urine Cloudy (Clear); Bacteria Urine 4+ /hpf; Bilirubin Urine Negative (Negative); Blood Urine Non-Hemolyzed Trace (Negative); Color Urine Yellow (Yellow); Glucose Urine UA Negative (Negative); Ketones Urine Trace mg/dL (Negative); Leukocyte Esterase Ur 2+ LEU/UL (Negative); Need Manual Microscopic Reviewed; Nitrate Urine Positive (Negative); Protein Urine Trace mg/dL (Negative); RBC Urine 0-2 /hpf (0-2); Specific Grav Ur 1.012 (1.001-1.035); Squamous Epithelial Cell Urine Few /hpf (Few); Urobilinogen Urine 0.2 mg/dL (<2.0); WBC Clumps Urine Present /HPF; WBC Urine 51-100 /hpf (0-3); pH Urine 5.5 (5.0-9.0)
[2024-09-13 13:19] LABS: Magnesium 1.5 mg/dL (1.6-2.3)
--- NOTE | 2024-09-13 13:26 | ED_ITS ---
HPI - Nausea/Vomiting/Diarrhea General Chief complaint: Nausea/Vomiting/Diarrhea Stated complaint: N/V Time Seen by Provider: 09/13/24 12:28 Source: patient, family, EMS and RN notes reviewed Mode of arrival: EMS History of Present Illness HPI Narrative: patient presents with report of nausea, vomiting, and weakness. Patient does not know if she has been nauseated or vomited but facility told daughter she did and she had dried yellow around her mouth. Patient's daughter denies that her mother has been confused. no report of cough or fevers. Patient denies any shortness of breath, chest pain, or abdominal pain. She had reported to her daughter that she was tired and that she hurt all over including her back, neck, and legs. She has a history of arthritis. Also history of Alzheimer's and is alert oriented x3 at baseline. Patient had a fall on July 31 and broke her hip. She Denies any recent falls. she was recently cleared to use her walker and had been progressing and daughter notes earlier this week she was at her baseline. Patient gets frequent urinary tract infections. Related Data Home Medications Medication Instructions Recorded Confirmed lovastatin 40 mg tablet 40 mg PO HS 10/02/19 09/13/24 donepezil 10 mg tablet 10 mg PO DAILY 01/24/23 09/13/24 acetaminophen 650 mg tablet 650 mg PO Q6H PRN Pain 09/13/24 09/13/24 alogliptin 12.5 mg-metformin 500 1 tablet PO DAILY 09/13/24 09/13/24 mg tablet enoxaparin 40 mg/0.4 mL 40 mg subcut DAILY 09/13/24 09/13/24 subcutaneous syringe ergocalciferol (vitamin D2) 1,250 1,250 mcg PO WEEKLY 09/13/24 09/13/24 mcg (50,000 unit) capsule insulin aspart U-100 100 unit/mL 10 unit subcut DAILY 09/13/24 09/13/24 (3 mL) subcutaneous pen (Novolog FlexPen U-100 Insulin aspart) ketoconazole 2 % topical cream 1 applic topical BID 09/13/24 09/13/24 loperamide 2 mg tablet 2 mg PO PRN PRN Diarrhea 09/13/24 09/13/24 oxycodone 5 mg tablet 2.5 mg PO Q4H PRN Pain 09/13/24 09/13/24 sennosides 8.6 mg-docusate sodium 1 tablet PO BID 09/13/24 09/13/24 50 mg tablet Allergies Allergy/AdvReac Type Severity Reaction Status Date / Time insulin lispro Allergy Intermediate Hives Verified 01/17/24 08:35 [From Humalog U-100 Insulin] [facility] Past Medical History Medical History Adrenal mass Arthritis Back pain Benign hypertension Cerebral atherosclerosis Chronic GERD CKD (chronic kidney disease) stage 3, GFR 30-59 ml/min Degenerative joint disease of knee Dementia Diabetes Essential (primary) hypertension Fibromyalgia Fracture of unspecified part of neck of left femur, subsequent encounter for closed fracture with routine healing Hepatitis High cholesterol Mixed hyperlipidemia Muscle weakness (generalized) Osteoporosis Other lack of coordination Type 2 diabetes mellitus with diabetic chronic kidney disease Unstable gait Urine incontinence Wears glasses Surgical History Surgical History History of total left knee replacement Hx of hysterectomy Family History Family History Father Family history of lung cancer, Onset Age: 65 Social History Social History Social History: POLST signed 10/13/23 states CPR but with selective treatment Smoking status: Never smoker Second hand tobacco smoke exposure: No Alcohol intake: never Substance use: never Do You Feel Safe in your Home?: Yes Lack of Transportation: No Lack of Food: Never True Current Housing: I Have Housing Concerned About Future Housing: No Difficulty Paying Gas/Electric Bills: No Difficulty Paying for Meds: No Currently Unemployed: No Education: Bachelor's Degree Difficulty w/ Childcare or Family Care: No Living arrangements: assisted living Occupation/Education: retired Gender identity (if verbalized by the patient): Female Spiritual care concerns: No Exam Narrative: GENERAL: well-nourished, and in no acute distress. HEAD: Normocephalic, atraumatic. EYES: Non injected, non icteric ENT: Nares clear, no rhinorrhea or epistaxis. very Dry mucous membranes. dried yellow sputum verses emesis around mouth and on chin. NECK: Supple. Able to demonstrate neck flexion , And does so without flexion of knees CHEST: Speaking in full sentences. No respiratory distress. HEART: Regular rate and rhythm. . ABDOMEN: Soft, nondistended. Back: Stage I decubitus ulcer on sacrum Rectal: Exam performed with [facility] and Ghazal Espinal present and assisting. normal rectal tone. Nonthrombosed external hemorrhoids. Normal stool on glov ed lubricated finger. FOBT/guaiac negative. EXTREMITIES: nonpitting edema on the left lower extremity edema. SKIN: Warm, dry, no rash. NEURO: No focal deficits. Alert and oriented. PSYCH: Normal mood and affect. Course Vital Signs Vital signs: Vital Signs Temperature 97.9 F 09/13/24 11:46 Pulse Rate 101 H 09/13/24 11:46 Respiratory Rate 16 09/13/24 11:46 Blood Pressure 84/49 L 09/13/24 11:46 Pulse Oximetry 95 09/13/24 11:46 Oxygen Delivery Room Air 09/13/24 11:46 Temperature 98.2 F 09/13/24 19:00 Pulse Rate 86 09/13/24 20:00 Respiratory Rate 18 09/13/24 19:00 Blood Pressure 120/56 L 09/13/24 19:00 Pulse Oximetry 99 09/13/24 19:00 Oxygen Delivery Room Air 09/13/24 11:46 MDM - Nausea/Vomiting/Diarrhea MDM Narrative Medical decision making narrative: Patient presents with report of generalized weakness. She states she hurts all over. In the emergency department she is afebrile with vital signs notable for borderline tachycardia as well as hypotension. She has a leukocytosis and normocytic anemia. The anemia is a 3.5 g drop from previous in July of 2024. FOBT negative however. patient also has an DIANNE. Fluids had already been ordered (30cc/kg) given the concern for sepsis and infectious etiology given the combination of her mild tachypnea, mild tachycardia, and hypotension. she has significant hypokalemia which will require both IV and oral repletion. This is associated with mild hypomagnesemia so will replete this as well. She is also hypoglycemic so, although not critically low, will give 1amp D50 especially given how weak she was on exam and the fact that labs had been drawn with a time delay between when resulted and when I was able to evaluate her at bedside. she is also hypoalbuminemic. Patient had evidence of urinary tract infection on urinalysis. Prior urine culture from April 2023 is reviewed which grew Klebsiella aerogenes (Enterobacter) which was resistant to Augmentin and cefazolin with indeterminate sensitivity to ceftriaxone otherwise sensitive to other antibiotics so will start her on Zosyn. Differential Diagnosis Differential diagnosis: Likely gastroenteritis, drug-induced nausea and vomiting, dehydration and other ( GI bleed, acute viral syndrome, pneumonia, urinary tract infection, sepsis; PE) Medical Records Attestation: I reviewed the patient's medical records. Medical records narrative: no anticoagulation on patient's medication list from [facility] and no diagnosis of heart failure. She does have a history of generalized muscle weak ness and lack of coordination and unsteadiness on feet listed on her problem list. Lab Data Attestation: I reviewed the patient's lab results. 09/13/24 12:18 09/13/24 19:34 Labs: Lab Results 09/13/24 09/13/24 09/13/24 Range/Units 12:18 12:35 14:27 WBC 13.8 H (4.5-10.0) K/mm3 RBC 3.52 L (4.2-5.4) M/mm3 Hgb 10.1 L D (12.0-15.0) g/dL Hct 31.8 L (37.0-47.0) % MCV 90.3 (80-100) fl MCH 28.7 (26-34) pg MCHC 31.8 L (32-36) g/dl RDW 14.3 (11.5-14.5) % Plt Count 188 (150-375) k/mm3 MPV 9.7 (7.4-10.4) fl Immature Gran % (Auto) Not Reportable Neut % (Auto) Not Reportable Lymph % (Auto) Not Reportable [place] % (Auto) Not Reportable Eos % (Auto) Not Reportable Baso % (Auto) Not Reportable Lymph # (Auto) Not Reportable [place] # (Auto) Not Reportable Eos # (Auto) Not Reportable Baso # (Auto) Not Reportable Abs Immat Gran (auto) Not Reportable Absolute Neuts (auto) Not Reportable Absolute Nucleated RBC Not Reportable Total Counted 100 Neutrophils % (Manual) 73 (46-73) % Band Neutrophils % 19 H (0-6) % Lymphocytes % (Manual) 6.0 L (18-44) % Monocytes % (Manual) 2 L (3-9) % Nucleated RBC % Not Reportable Abs Neuts (Manual) 12.69 H (1.7-7.2) K/mm3 Abs Lymphs (Manual) 0.82 L (1.1-4.5) K/mm3 Abs Monocytes (Manual) 0.27 (0.1-0.90) K/mm3 Platelet Estimate Adequate (Adequate) Schistocytes None seen PT (11.1-14.7) Seconds INR APTT (22.3-36.8) Seconds D-Dimer (<0.48) ug/mL Sodium 139 (137-145) mmol/L Potassium 2.8 L* (3.4-5.0) mmol/L Chloride 105 (98-107) mmol/L Carbon Dioxide 28 (22-30) mmol/L Anion Gap 6 (4-12) mmol/L BUN 12 (7-17) mg/dL Creatinine 1.10 H (0.7-1.0) mg/dL Estim Creat Clear Calc Not Reportable Estimated GFR 48 L (59 - ) Glucose 62 L (65-110) mg/dL POC Capillary Glucose 71 (65-105) mg/dl Lactic Acid (0.7-2.0) mmol/L Calcium 8.6 (8.4-10.2) mg/dL Magnesium 1.5 L (1.6-2.3) mg/dL Total Bilirubin 0.5 (0.2-1.3) mg/dL AST 23 (14-36) U/L ALT 19 (6-35) U/L Alkaline Phosphatase 74 (38-126) U/L Total Creatine Kinase (30-135) U/L C-Reactive Protein (<1.0) mg/dL NT-Pro-B Natriuret Pep (19.9-100) pg/mL Total Protein 6.0 L (6.3-8.2) g/dL Albumin 2.9 L (3.5-5.1) g/dL Lipase 49 (23-300) U/L Urine Color Yellow (Yellow) Urine Appearance Cloudy H (Clear) Urine pH 5.5 (5.0-9.0) Ur Specific [place] 1.012 (1.001-1.035) Urine Protein Trace (Negative) mg/dL Urine Glucose (UA) Negative (Negative) mg/dL Urine Ketones Trace H (Negative) mg/dL Ur Blood (Man) Non-hemolyzed trace H (Negative) Urine Nitrate Positive H (Negative) Urine Bilirubin Negative (Negative) Urine Urobilinogen 0.2 (<2.0) mg/dL Add Ur Microanalysis Reviewed Leukocyte Esterase Rfl 2+ H (Negative) SUKI/UL Urine RBC 0-2 (0-2) /hpf Urine WBC 51-100 H (0-3) /hpf Urine WBC Clumps Present H (None) /HPF Ur Squamous Epith Cells Few (Few) /hpf Urine Bacteria 4+ H /hpf Urine Casts 3-5 Influenza A (RT-PCR) (Negative) Influenza B (RT-PCR) (Negative) SARS-CoV-2 RNA (RT-PCR) (Negative) 09/13/24 09/13/24 09/13/24 Range/Units 14:56 14:57 15:00 WBC (4.5-10.0) K/mm3 RBC (4.2-5.4) M/mm3 Hgb (12.0-15.0) g/dL Hct (37.0-47.0) % MCV (80-100) fl MCH (26-34) pg MCHC (32-36) g/dl RDW (11.5-14.5) % Plt Count (150-375) k/mm3 MPV (7.4-10.4) fl Immature Gran % (Auto) Neut % (Auto) Lymph % (Auto) [place] % (Auto) Eos % (Auto) Baso % (Auto) Lymph # (Auto) [place] # (Auto) Eos # (Auto) Baso # (Auto) Abs Immat Gran (auto) Absolute Neuts (auto) Absolute Nucleated RBC Total Counted Neutrophils % (Manual) (46-73) % Band Neutrophils % (0-6) % Lymphocytes % (Manual) (18-44) % Monocytes % (Manual) (3-9) % Nucleated RBC % Abs Neuts (Manual) (1.7-7.2) K/mm3 Abs Lymphs (Manual) (1.1-4.5) K/mm3 Abs Monocytes (Manual) (0.1-0.90) K/mm3 Platelet Estimate (Adequate) Schistocytes PT 15.6 H (11.1-14.7) Seconds INR 1.2 APTT 29.7 (22.3-36.8) Seconds D-Dimer 8.57 H (<0.48) ug/mL Sodium (137-145) mmol/L Potassium (3.4-5.0) mmol/L Chloride (98-107) mmol/L Carbon Dioxide (22-30) mmol/L Anion Gap (4-12) mmol/L BUN (7-17) mg/dL Creatinine (0.7-1.0) mg/dL Estim Creat Clear Calc Estimated GFR (59 - ) Glucose (65-110) mg/dL POC Capillary Glucose 112 H (65-105) mg/dl Lactic Acid 3.5 H (0.7-2.0) mmol/L Calcium (8.4-10.2) mg/dL Magnesium (1.6-2.3) mg/dL Total Bilirubin (0.2-1.3) mg/dL AST (14-36) U/L ALT (6-35) U/L Alkaline Phosphatase (38-126) U/L Total Creatine Kinase 100 (30-135) U/L C-Reactive Protein 4.5 H (<1.0) mg/dL NT-Pro-B Natriuret Pep 2650 H (19.9-100) pg/mL Total Protein (6.3-8.2) g/dL Albumin (3.5-5.1) g/dL Lipase (23-300) U/L Urine Color (Yellow) Urine Appearance (Clear) Urine pH (5.0-9.0) Ur Specific [place] (1.001-1.035) Urine Protein (Negative) mg/dL Urine Glucose (UA) (Negative) mg/dL Urine Ketones (Negative) mg/dL Ur Blood (Man) (Negative) Urine Nitrate (Negative) Urine Bilirubin (Negative) Urine Urobilinogen (<2.0) mg/dL Add Ur Microanalysis Leukocyte Esterase Rfl (Negative) SUKI/UL Urine RBC (0-2) /hpf Urine WBC (0-3) /hpf Urine WBC Clumps (None) /HPF Ur Squamous Epith Cells (Few) /hpf Urine Bacteria /hpf Urine Casts Influenza A (RT-PCR) Negative (Negative) Influenza B (RT-PCR) Negative (Negative) SARS-CoV-2 RNA (RT-PCR) Negative (Negative) Imaging Data Radiologist's impression: Impressions Head CT 09/13/24 14:09 IMPRESSION: 1. Small subacute subdural hematoma overlying left parietal lobe with decrease in size from 07/31/2024. 2. 3 mm intraparenchymal hematoma in right parietal lobe with decrease in size from 07/31/2024. 3. Stable extensive nonspecific cerebral white matter disease, which likely represents chronic small vessel ischemic disease. Chest X-Ray 09/13/24 14:16 IMPRESSION: 1. No acute cardiopulmonary disease. Cervical Spine CT 09/13/24 14:20 IMPRESSION: 1. No fracture. 2. Severe cervical spondylosis. Abdomen/Pelvis CT 09/13/24 14:49 IMPRESSION: 1. No etiology for the patient's symptoms. Chest CTA 09/13/24 16:20 IMPRESSION: 1. No pulmonary embolus. ECG Data EKG #1: Attestation: I personally reviewed and interpreted this ECG as follows: ECG completion date: 09/13/24 ECG completion time: 14:37 Interpretation: normal sinus rhythm at a rate of 82 beats per minute. SC interval 186. QRS 94. QT/ QTC 303/341. Left axis deviation (QRS is positive with dominant R wave in Lead I; QRS is negative with dominant S wave in leads II, III, and aVF). No T-wave inversions. Discharge Plan Discharge Clinical Impression: Generalized weakness, Leukocytosis, DIANNE (acute kidney injury), Hypokalemia, Hypoglycemia associated with diabetes, Hypoalbuminemia, Hypomagnesemia, CRP elevated Anemia Qualifiers: Anemia type: unspecified type Qualified Code(s): D64.9 - Anemia, unspecified UTI (urinary tract infection) Qualifiers: Urinary tract infection type: acute cystitis Hematuria presence: without hematuria Qualified Code(s): N30.00 - Acute cystitis without hematuria Patient Disposition: Still a Patient Condition: Stable
[2024-09-13 13:45] LABS: Alanine Aminotransferase 19 U/L (6-35); Albumin Level 2.9 g/dL (3.5-5.1); Alkaline Phosphatase 74 U/L (38-126); Anion Gap 6 mmol/L (4-12); Aspartate Amino Transferase 23 U/L (14-36); Bilirubin,Total 0.5 mg/dL (0.2-1.3); Blood Urea Nitrogen 12 mg/dL (7-17); Calcium 8.6 mg/dL (8.4-10.2); Carbon Dioxide 28 mmol/L (22-30); Chloride 105 mmol/L (98-107); Estimated Glomerular Filt Rate 48; Glucose 62 mg/dL (65-110); Lipase 49 U/L (23-300); Potassium 2.8 mmol/L (3.4-5.0); Sodium 139 mmol/L (137-145)
--- NOTE | 2024-09-13 13:52 | ECG_ITS ---
Test Date: 2024-09-13 14:37:03 Measurements Intervals [place] Rate: 82 P: 64 AR: 186 QRS: -43 QRSD: 94 T: 62 QT: 303 QTc: 354 Interpretive Statements SINUS RHYTHM LEFT AXIS DEVIATION NONSPECIFIC T-WAVE ABNORMALITY- HIGH LATERAL LEADS BASELINE ARTIFACT- I, II, III, AVR, AVL, AVF, V1-V6 BORDERLINE ECG Compared to ECG 07/31/2024 07:28:43 NO SIGNIFICANT CHANGE Electronically Signed On 09-13-2024 14:45:31 SOURCING CONSULTANT by Riki Butts D.O.
[2024-09-13] MEDS: POTASSIUM BICARBONATE 25 MEQ TABEF 50 MEQ PO (14:32)
[2024-09-13] MEDS: DEXTROSE 50% 25 GM/50 ML SYRINGE IV PUSH (14:32)
[2024-09-13] MEDS: ACETAMINOPHEN 325 MG TABLET 650 MG PO (14:33)
[2024-09-13] MEDS: SODIUM CHLORIDE 0.9% IV 2,100 ML/1,000 ML BAG 999 ML IV CONT ×3 (14:33→17:57)
[2024-09-13 15:04] LABS: Glucose Point of Care 112 mg/dl (65-105)
[2024-09-13 15:04] LABS: Glucose Point of Care 71 mg/dl (65-105)
[2024-09-13] MEDS: MAGNESIUM SULF 1 GM/D5W 100 ML 1 GM/100 ML BAG IVPB (15:08)
[2024-09-13] MEDS: PIPERACILLIN/TAZ 4.5G/NS 100ML 4.5 GM/100 ML BAG IVPB (15:10)
[2024-09-13 15:28] LABS: INR 1.2; Prothrombin Time 15.6 Seconds (11.1-14.7)
[2024-09-13 15:29] LABS: Partial Thromboplastin Time 29.7 Seconds (22.3-36.8)
[2024-09-13 15:34] LABS: Lactic Acid Reflex 3.5 mmol/L (0.7-2.0)
[2024-09-13 15:39] LABS: CRP 4.5 mg/dL (<1.0); Creatine Kinase 100 U/L (30-135)
[2024-09-13 15:42] LABS: D Dimer 8.57 ug/mL (<0.48)
[2024-09-13 15:44] LABS: NT Pro B Type Natriuretic Pept 2650 pg/mL (19.9-100)
[2024-09-13] MEDS: KCL 20 MEQ/SW 100 ML 100 ML 50 MEQ IVPB (16:40)
[2024-09-13 16:41] LABS: Influenza A QL RT-PCR Negative (Negative); Influenza B QL RT-PCR Negative (Negative); SARS-CoV-2 RNA PCR Negative (Negative)
[2024-09-13 18:15] LABS: Reflex Lactic Acid Yes or No Add Lactic
--- NOTE | 2024-09-13 18:30 | PC.NURSE ---
patient being admitted with potassium infusing per order.
--- NOTE | 2024-09-13 18:40 | ADMGEN ---
This patient, Annabelle Lowe, was admitted to Medical Room 253-01. Patient/family oriented to hospital policies and general routines including ID bracelet, bed and alarms, visiting hours, pain management, procedures, bathroom and other care routines, personal items, smoking policy, room service/diet, and visiting hours. Information on how to activate the Rapid Response Team has been discussed. Patient/Family are encouraged to report perceived risks to care and to ask questions if they do not understand what they are told or what they should do.
[2024-09-13 19:52] LABS: Lactic Acid 1.8 mmol/L (0.7-2.0)
[2024-09-13 19:54] LABS: Anion Gap 4 mmol/L (4-12); Blood Urea Nitrogen 12 mg/dL (7-17); Carbon Dioxide 26 mmol/L (22-30); Chloride 107 mmol/L (98-107); Estimated CRCL calculation 39 ml/min; Estimated Glomerular Filt Rate 53; Glucose 159 mg/dL (65-110); Potassium 4.3 mmol/L (3.4-5.0); Sodium 137 mmol/L (137-145)
--- NOTE | 2024-09-13 21:47 | P.HP_ITS ---
H&P: HPI History of Present Illness Date/Time: 09/13/24 21:47 Chief Complaint: Nausea and Vomiting Narrative: 79 y/o F presents here with nausea, vomiting and weakness with PMH of Alzheimer's, CKD, diabetes, HTN, fibromyalgia, osteoporosis, hepatitis, subdural hematoma and intraparenchymal bleed. The patient presents here via EMS from [facility] for further evaluation of nausea, vomiting, and weakness. The patient is unable to contribute to the history. At baseline she is A&O x1 secondary to dementia per previous documentation here. Facility reported to EMS and patient's daughter that she developed nausea and vomiting. Patient has no recollection of nausea or vomiting. Did arrive with dried yellow secretions around her mouth. Of note, patient was seen on 07/31/2024 post ground level fall for left hip pain. Trauma workup was significant for a subdural hematoma and small intraparenchymal bleed. She currently denies headache, dizziness, chest pain, shortness of breath, fever, chills, body aches, dysuria, urinary frequency or abdominal pain. Initial VS at presentation: 97.9? F, HR 101, RR 16, 84/49, and 95% on RA. ED workup showed: WBC 13.8, hemoglobin 10.1 (previously 13.6 on 07/31/2024), elevated D-dimer, INR 1.2, creatinine 1.0 and GFR 53, lactic 3.5, potassium 2.8 (corrected in emergency department, now 4.3), magnesium 1.5, CRP 4.5, BNP 2 6 x 0, albumin 2.9, and UA suggestive of UTI. Viral PCR negative. Head CT showed a small subacute subdural hematoma overlying the left parietal lobe with decrease in size from 07/31, 3 mm IPH and right parietal lobe with decrease in size from 07/31, stable extensive nonspecific cerebral white matter disease. CXR showed no acute cardiopulmonary disease. C-spine CT showed no fracture and severe cervical spondylosis. CT of the abdomen/pelvis showed no etiology for the patient's symptoms. Chest CTA showed no PE. Review of Systems Review of Systems: All systems reviewed & are unremarkable except as noted in HPI and below PMFSH Past Medical History Medical History (Updated 09/13/24 @ 23:50 by Nola Vines, RAT EXTERMINATOR) Adrenal mass Arthritis Back pain Benign hypertension Cerebral atherosclerosis Chronic GERD CKD (chronic kidney disease) stage 3, GFR 30-59 ml/min Degenerative joint disease of knee Dementia Diabetes Essential (primary) hypertension Fibromyalgia Fracture of unspecified part of neck of left femur, subsequent encounter for closed fracture with routine healing Hepatitis High cholesterol Mixed hyperlipidemia Muscle weakness (generalized) Osteoporosis Other lack of coordination Type 2 diabetes mellitus with diabetic chronic kidney disease Unstable gait Urine incontinence Wears glasses Surgical History Surgical History History of total left knee replacement Hx of hysterectomy Family History Family History Father Family history of lung cancer, Onset Age: 65 Social History Social History Social History: POLST signed 10/13/23 states [facility] but with selective treatment Smoking status: Never smoker Second hand tobacco smoke exposure: No Alcohol intake: never Substance use: never Do You Feel Safe in your Home?: Yes Lack of Transportation: No Lack of Food: Never True Current Housing: I Have Housing Concerned About Future Housing: No Difficulty Paying Gas/Electric Bills: No Difficulty Paying for Meds: No Currently Unemployed: No Education: Bachelor's Degree Difficulty w/ Childcare or Family Care: No Living arrangements: assisted living Occupation/Education: retired Gender identity (if verbalized by the patient): Female Spiritual care concerns: No Meds Home Medications and Allergies Home Medications Medication Instructions Recorded Confirmed Type lovastatin 40 mg tablet 40 mg PO HS 10/02/19 09/13/24 History levocetirizine 5 mg tablet (Xyzal) 5 mg PO DAILY #90 tabs 04/28/20 09/13/24 Rx montelukast 10 mg tablet 10 mg PO QHS #90 tabs 02/11/21 09/13/24 Rx (Singulair) blood-glucose meter (OneTouch #1 ea 06/02/21 09/13/24 Rx Verio IQ Meter) pen needle, diabetic, safety 30 See Rx Instructions .Route 11/04/21 09/13/24 Rx gauge x 1/3 (Novofine Autocover) .COMPLEX #100 ea diaper,brief,adult,disposable #90 ea 10/13/22 09/13/24 Rx (Depend Fit-Flex Underwear) donepezil 10 mg tablet 10 mg PO DAILY 01/24/23 09/13/24 History dulaglutide 1.5 mg/0.5 mL 1.5 mg (0.5 mL) subcut WEEKLY #2 mL 03/17/23 09/13/24 Rx subcutaneous pen injector (Trulicity) blood sugar diagnostic (OneTouch #200 strips 04/29/23 09/13/24 Rx Verio test strips) acetaminophen 650 mg tablet 650 mg PO Q6H PRN Pain 09/13/24 09/13/24 History alogliptin 12.5 mg-metformin 500 1 tablet PO DAILY 09/13/24 09/13/24 History mg tablet enoxaparin 40 mg/0.4 mL 40 mg subcut DAILY 09/13/24 09/13/24 History subcutaneous syringe ergocalciferol (vitamin D2) 1,250 1,250 mcg PO WEEKLY 09/13/24 09/13/24 History mcg (50,000 unit) capsule insulin aspart U-100 100 unit/mL 10 unit subcut DAILY 09/13/24 09/13/24 History (3 mL) subcutaneous pen (Novolog FlexPen U-100 Insulin aspart) ketoconazole 2 % topical cream 1 applic topical BID 09/13/24 09/13/24 History loperamide 2 mg tablet 2 mg PO PRN PRN Diarrhea 09/13/24 09/13/24 History oxycodone 5 mg tablet 2.5 mg PO Q4H PRN Pain 09/13/24 09/13/24 History sennosides 8.6 mg-docusate sodium 1 tablet PO BID 09/13/24 09/13/24 History 50 mg tablet Allergies Allergy/AdvReac Type Severity Reaction Status Date / Time insulin lispro Allergy Intermediate Hives Verified 01/17/24 08:35 [From Humalog U-100 Insulin] Vital Signs Vital Signs - 24 hr 09/13/24 11:46 09/13/24 12:01 09/13/24 12:02 Temperature 97.9 F 97.8 F Pulse Rate 101 H 85 92 Respiratory Rate 16 21 H 22 H Blood Pressure 84/49 L 94/49 L Pulse Oximetry 95 97 Oxygen Delivery Room Air 09/13/24 12:15 09/13/24 12:16 09/13/24 12:30 Temperature Pulse Rate 93 89 83 Respiratory Rate 11 L 12 17 Blood Pressure 103/45 L Pulse Oximetry 98 97 79 L Oxygen Delivery 09/13/24 12:31 09/13/24 12:45 09/13/24 12:46 Temperature Pulse Rate 87 80 81 Respiratory Rate 12 19 19 Blood Pressure 108/53 L 103/49 L Pulse Oximetry 93 93 Oxygen Delivery 09/13/24 13:00 09/13/24 13:01 09/13/24 13:15 Temperature Pulse Rate 84 86 81 Respiratory Rate 18 17 18 Blood Pressure 112/51 L 109/47 L Pulse Oximetry 87 L 91 93 Oxygen Delivery 09/13/24 13:16 09/13/24 13:30 09/13/24 13:31 Temperature Pulse Rate 81 75 76 Respiratory Rate 18 21 H 19 Blood Pressure 112/50 L Pulse Oximetry 84 L 96 89 L Oxygen Delivery 09/13/24 13:45 09/13/24 13:46 09/13/24 14:45 Temperature Pulse Rate 90 86 76 Respiratory Rate 18 17 16 Blood Pressure 111/52 L 127/49 L Pulse Oximetry 96 100 100 Oxygen Delivery 09/13/24 15:00 09/13/24 15:15 09/13/24 15:30 Temperature Pulse Rate 82 87 74 Respiratory Rate 15 17 15 Blood Pressure Pulse Oximetry 100 Oxygen Delivery 09/13/24 15:45 09/13/24 16:00 09/13/24 16:19 Temperature Pulse Rate 77 80 79 Respiratory Rate 19 18 11 L Blood Pressure Pulse Oximetry 95 70 L Oxygen Delivery 09/13/24 16:30 09/13/24 16:40 09/13/24 16:45 Temperature Pulse Rate 74 73 71 Respiratory Rate 17 17 20 Blood Pressure 110/41 L 88/42 L Pulse Oximetry 81 L Oxygen Delivery 09/13/24 16:46 09/13/24 16:47 09/13/24 17:00 Temperature Pulse Rate 86 80 74 Respiratory Rate 24 H 19 19 Blood Pressure 95/46 L 86/46 L Pulse Oximetry 81 L 100 Oxygen Delivery 09/13/24 17:01 09/13/24 17:07 09/13/24 17:08 Temperature Pulse Rate 75 75 74 Respiratory Rate 20 17 13 Blood Pressure 86/40 L 103/50 L Pulse Oximetry 88 L 84 L Oxygen Delivery 09/13/24 17:15 09/13/24 18:02 09/13/24 19:00 Temperature 97.6 F 98.2 F Pulse Rate 82 73 90 Respiratory Rate 17 24 H 18 Blood Pressure 103/45 L 120/56 L Pulse Oximetry 94 98 99 Oxygen Delivery 09/13/24 20:00 Temperature Pulse Rate 86 Respiratory Rate Blood Pressure Pulse Oximetry Oxygen Delivery Exam Const: General: comfortable and no acute distress Other: , female, elderly, nontoxic appearance HENMT: Face/Nose/Sinus: Normal nares present Mouth: Yes moist mucous membranes Eyes: General: appearance normal, both eyes and all related structures Sclera: sclerae normal Pupils: Equal, round and reactive pupils present EOM: EOMs intact bilaterally Resp: Effort & Inspection: normal respiratory effort Auscultation: clear to auscultation bilaterally Cardio: Rate: regular rate Rhythm: regular rhythm Other: S1-S2 present without murmur, rub, ectopy GI: Auscultation: normal bowel sounds Other: Abdomen soft, nondistended, nontender Skin: General skin exam: normal color and no rashes or lesions noted Wounds: no wounds Neuro: Speech: normal speech Sensory Exam: normal sensation Other: A&O x1. Generalized weakness throughout, symmetric. Extrem: General: normal to inspection Psych: Mental Status: mental status grossly normal Affect: normal affect Other: Poor insight and judgment. H&P: Results Labs Labs: Short CBC 09/13/24 Range/Units 12:18 WBC 13.8 H (4.5-10.0) K/mm3 Hgb 10.1 L D (12.0-15.0) g/dL Hct 31.8 L (37.0-47.0) % Plt Count 188 (150-375) k/mm3 [facility] 09/13/24 09/13/24 12:18 19:34 Sodium 139 137 Potassium 2.8 L* 4.3 Chloride 105 107 Carbon Dioxide 28 26 BUN 12 12 Creatinine 1.10 H 1.00 Glucose 62 L 159 H Calcium 8.6 8.0 L Cardiac Enzymes 09/13/24 Range/Units 14:57 Total Creatine Kinase 100 (30-135) U/L Liver Function 09/13/24 Range/Units 12:18 Total Bilirubin 0.5 (0.2-1.3) mg/dL AST 23 (14-36) U/L ALT 19 (6-35) U/L Alkaline Phosphatase 74 (38-126) U/L Albumin 2.9 L (3.5-5.1) g/dL Urine 09/13/ Range/Units 12:35 Urine Color Yellow (Yellow) Urine Appearance Cloudy H (Clear) Urine pH 5.5 (5.0-9.0) Ur Specific [place] 1.012 (1.001-1.035) Urine Protein Trace (Negative) mg/dL Urine Glucose (UA) Negative (Negative) mg/dL Assessment and Plan Assessment and plan (1) Sepsis: Qualifiers: Sepsis type: sepsis due to unspecified organism Sepsis acute organ dysfunction status: without acute organ dysfunction Qualified Code(s): A41.9 - Sepsis, unspecified organism Code(s): A41.9 - Sepsis, unspecified organism Status: Acute Assessment and Plan: - meets SIRS criteria: HR, WBC. BP soft at arrival (84/49) - lactic acid: 3.5-> 1.8 - lactic elevated, procalcitonin added - 30 mL/kg bolus given - suspected source: UTI - started on meropenem - blood cultures drawn on 09/13 - monitor hemodynamic stability (2) UTI (urinary tract infection): Qualifiers: Hematuria presence: without hematuria Urinary tract infection type: acute cystitis Qualified Code(s): N30.00 - Acute cystitis without hematuria Code(s): N39.0 - Urinary tract infection, site not specified Status: Acute Assessment and Plan: - UA: Cloudy, trace ketones, non hemolyzed trace blood, positive nitrates, 2+ leuks, 51-100 WBC, WBC clumps present, few epithelial cells, 4+ bacteria - UC pending - previous micro reviewed, previously grew Enterobacter/Klebsiella in 2022 (intermediate to ceftriaxone) and E coli in 2021. - started on meropenem on 09/13 (3) Nausea & vomiting: Qualifiers: Vomiting type: unspecified Qualified Code(s): R11.2 - Nausea with vomiting, unspecified Code(s): R11.2 - Nausea with vomiting, unspecified Status: Acute Assessment and Plan: - head CT 1. Small subacute subdural hematoma overlying left parietal lobe with decrease in size from 07/31/2024. 2. 3 mm intraparenchymal hematoma in right parietal lobe with decrease in size from 07/31/2024. 3. Stable extensive nonspecific cerebral white matter disease, which likely represents chronic small vessel ischemic disease. - abdomen/pelvis CT 1. No etiology for the patient's symptoms. - chest CTA showed no PE and cervical spine CT showed no acute fracture - suspect nausea and vomiting may be secondary to sepsis/UTI/hypotension. Given recent head bleed, will continue neuro checks q.4. Per imaging, subacute bleed is resolving. (4) Anemia: Qualifiers: Anemia type: unspecified type Qualified Code(s): D64.9 - Anemia, unspecified Code(s): D64.9 - Anemia, unspecified Status: Acute Assessment and Plan: - Hgb 10.1, previously 13.6 on 07/31/2024 - RAZA/guaiac negative in ED - iron, TIBC, ferritin, B12, folic acid, TSH ordered - monitor - transfuse if less than 7 (5) Hypomagnesemia: Code(s): E83.42 - Hypomagnesemia Status: Acute Assessment and Plan: - Mag 1.5 - initial repletion with 1 g - recheck in a.m. (6) Diabetes: Code(s): E11.9 - Type 2 diabetes mellitus without complications Status: Acute Assessment and Plan: - hypoglycemia protocol - POC blood glucose ACHS - home medication: Continue Alogliptin-metformin, NovoLog 10 units daily. Hold Trulicity (NF) - no sliding scale ordered, allergy to lisinopril - A1C 9.8% in 2020, update (7) Benign hypertension: Code(s): I10 - Essential (primary) hypertension Status: Chronic Assessment and Plan: - chronic, currently 110/74 - no current home medications - monitor Plan Initially presented with hypokalemia at 2.8, and repleted and recheck showed 4.3. Monitor. Resolved. Diet: Heart healthy GI Prophylaxis: Not currently indicated DVT Prophylaxis: SCDs Lines: Peripheral Code Status: Full code Quality VTE Prophylaxis VTE prophylaxis: pharmacologic ordered Hospitalist MIPS Advance Care Plan I have confirmed that the patient's Advanced Care Plan is present, code status is documented, or surrogate decision maker is listed in patient medical record.: Yes Medication Reconciliation I have utilized all available resources to obtain, update and review the patients current medications (includes all prescriptions, OTC, herbals, cannabis, and nutritional supplements).: Yes
[2024-09-14] VITALS (10 sets, daily range): BP systolic 111–123; BP diastolic 54–70; PULSE 58–74; RESP 18; TEMP 36.4–37.1; O2SAT 99–100
[2024-09-14] MEDS: ALBUMIN HUMAN 25% 25 GM/100 ML 100 ML IVPB ×4 (00:05→17:41)
[2024-09-14] MEDS: MEROPENEM 1 GM/NS 100 ML 1 GM/100 ML BAG IVPB ×3 (00:22→20:19)
[2024-09-14 02:22] LABS: Glucose Point of Care 126 mg/dl (65-105)
[2024-09-14 06:10] LABS: Iron 11 ug/dL (37-170)
[2024-09-14 06:20] LABS: Percent Iron Saturation 4 % (20-50)
[2024-09-14 06:34] LABS: Procalcitonin 34.9 ng/mL
[2024-09-14 06:38] LABS: Hemoglobin A1C 6.1 % (<5.7)
[2024-09-14 06:41] LABS: Thyroid Stimulating Hormone Reflex 0.425 uIU/mL (0.465-4.68)
[2024-09-14 07:16] LABS: Folic Acid 3.8 ng/mL (2.76->20)
--- NOTE | 2024-09-14 08:16 | PM.IMPN ---
Progress Note: A&P Assessment and Plan (1) Sepsis: Qualifiers: Sepsis acute organ dysfunction status: without acute organ dysfunction Sepsis type: sepsis due to unspecified organism Qualified Code(s): A41.9 - Sepsis, unspecified organism Code(s): A41.9 - Sepsis, unspecified organism Status: Acute Assessment and Plan: improved - meets SIRS criteria: HR, WBC. BP soft at arrival (84/49) - lactic acid: 3.5-> 1.8 - lactic elevated, procalcitonin added - 30 mL/kg bolus given - suspected source: UTI - started on meropenem - blood cultures drawn on 09/13 - monitor hemodynamic stability (2) UTI (urinary tract infection): Qualifiers: Hematuria presence: without hematuria Urinary tract infection type: acute cystitis Qualified Code(s): N30.00 - Acute cystitis without hematuria Code(s): N39.0 - Urinary tract infection, site not specified Status: Acute Assessment and Plan: - UA: Cloudy, trace ketones, non hemolyzed trace blood, positive nitrates, 2+ leuks, 51-100 WBC, WBC clumps present, few epithelial cells, 4+ bacteria - UC pending - previous micro reviewed, previously grew Enterobacter/Klebsiella in 2022 (intermediate to ceftriaxone) and E coli in 2021. - started on meropenem on 09/13 (3) Nausea & vomiting: Qualifiers: Vomiting type: unspecified Qualified Code(s): R11.2 - Nausea with vomiting, unspecified Code(s): R11.2 - Nausea with vomiting, unspecified Status: Acute Assessment and Plan: improving - head CT 1. Small subacute subdural hematoma overlying left parietal lobe with decrease in size from 07/31/2024. 2. 3 mm intraparenchymal hematoma in right parietal lobe with decrease in size from 07/31/2024. 3. Stable extensive nonspecific cerebral white matter disease, which likely represents chronic small vessel ischemic disease. - abdomen/pelvis CT 1. No etiology for the patient's symptoms. - chest CTA showed no PE and cervical spine CT showed no acute fracture - suspect nausea and vomiting may be secondary to sepsis/UTI/hypotension. Given recent head bleed, will continue neuro checks q.4. Per imaging, subacute bleed is resolving. (4) Anemia: Qualifiers: Anemia type: unspecified type Qualified Code(s): D64.9 - Anemia, unspecified Code(s): D64.9 - Anemia, unspecified Status: Acute Assessment and Plan: iron deficiency anemia - Hgb 10.1, previously 13.6 on 07/31/2024 - RAZA/guaiac negative in ED - iron low, TIBC low, ferritin within normal limits, B12 within normal limit, folic acid within normal limits, TSH low - monitor - transfuse if less than 7 iron low will replace, IV replacements today than starting p.o. tomorrow T3 and T4 pending (5) Hypomagnesemia: Code(s): E83.42 - Hypomagnesemia Status: Acute Assessment and Plan: improved - Mag 1.5 - initial repletion with 1 g (6) Diabetes: Code(s): E11.9 - Type 2 diabetes mellitus without complications Status: Acute Assessment and Plan: well controlled - hypoglycemia protocol - POC blood glucose ACHS - home medication: Continue Alogliptin-metformin, NovoLog 10 units daily. Hold Trulicity (NF) - no sliding scale ordered, allergy to lisinopril - A1C 9.8% in 2020, update 6.1 (7) Benign hypertension: Code(s): I10 - Essential (primary) hypertension Status: Chronic Assessment and Plan: - chronic, currently 110/74 - no current home medications - monitor Plan Initially presented with hypokalemia at 2.8, and repleted and recheck showed 4.3. Monitor. Resolved. Diet: Heart healthy GI Prophylaxis: Not currently indicated DVT Prophylaxis: SCDs Lines: Peripheral Code Status: Full code Time Spent With Patient Time with patient: Greater than 35 minutes Subjective Date/time seen: 09/14/24 08:16 Interval history: 79 y/o F presents here with nausea, vomiting and weakness with PMH of Alzheimer's, CKD, diabetes, HTN, fibromyalgia, osteoporosis, hepatitis, subdural hematoma and intraparenchymal bleed. patient's nausea and vomiting has resolved. Patient denies weakness however she has severe Alzheimer's plan for PT OT today. Patient was found to iron deficiency anemia and is having IV iron today. And UTI which she is on antibiotics for. Review of Systems Review of Systems: All systems reviewed & are unremarkable except as noted in HPI and below Exam Const: General: comfortable and no acute distress Other: , female, elderly, nontoxic appearance HENMT: Face/Nose/Sinus: Normal nares present Mouth: Yes moist mucous membranes Eyes: General: appearance normal, both eyes and all related structures Sclera: sclerae normal Pupils: Equal, round and reactive pupils present EOM: EOMs intact bilaterally Resp: Effort & Inspection: normal respiratory effort Auscultation: clear to auscultation bilaterally Cardio: Rate: regular rate Rhythm: regular rhythm Other: S1-S2 present without murmur, rub, ectopy GI: Auscultation: normal bowel sounds Other: Abdomen soft, nondistended, nontender Skin: General skin exam: normal color and no rashes or lesions noted Wounds: no wounds Neuro: Cranial nerves: Yes Equal, round and reactive pupils present Speech: normal speech Sensory Exam: normal sensation Other: A&O x1. Generalized weakness throughout, symmetric. Extrem: General: normal to inspection Psych: Mental Status: mental status grossly normal Affect: normal affect Other: Poor insight and judgment. Severe dementia Objective Data Vital Signs Vital Signs: Vital Signs - 24 hr 09/13/24 11:46 09/13/24 12:01 09/13/24 12:02 Temperature 97.9 F 97.8 F Pulse Rate 101 H 85 92 Respiratory Rate 16 21 H 22 H Blood Pressure 84/49 L 94/49 L Pulse Oximetry 95 97 Oxygen Delivery Room Air 09/13/24 12:15 09/13/24 12:16 09/13/24 12:30 Temperature Pulse Rate 93 89 83 Respiratory Rate 11 L 12 17 Blood Pressure 103/45 L Pulse Oximetry 98 97 79 L Oxygen Delivery 09/13/24 12:31 09/13/24 12:45 09/13/24 12:46 Temperature Pulse Rate 87 80 81 Respiratory Rate 12 19 19 Blood Pressure 108/53 L 103/49 L Pulse Oximetry 93 93 Oxygen Delivery 09/13/24 13:00 09/13/24 13:01 09/13/24 13:15 Temperature Pulse Rate 84 86 81 Respiratory Rate 18 17 18 Blood Pressure 112/51 L 109/47 L Pulse Oximetry 87 L 91 93 Oxygen Delivery 09/13/24 13:16 09/13/24 13:30 09/13/24 13:31 Temperature Pulse Rate 81 75 76 Respiratory Rate 18 21 H 19 Blood Pressure 112/50 L Pulse Oximetry 84 L 96 89 L Oxygen Delivery 09/13/24 13:45 11/14/24 13:46 09/13/24 14:45 Temperature Pulse Rate 90 86 76 Respiratory Rate 18 17 16 Blood Pressure 111/52 L 127/49 L Pulse Oximetry 96 100 100 Oxygen Delivery 09/13/24 15:00 09/13/24 15:15 09/13/24 15:30 Temperature Pulse Rate 82 87 74 Respiratory Rate 15 17 15 Blood Pressure Pulse Oximetry 100 Oxygen Delivery 09/13/24 15:45 09/13/24 16:00 09/13/24 16:19 Temperature Pulse Rate 77 80 79 Respiratory Rate 19 18 11 L Blood Pressure Pulse Oximetry 95 70 L Oxygen Delivery 09/13/24 16:30 09/13/24 16:40 09/13/24 16:45 Temperature Pulse Rate 74 73 71 Respiratory Rate 17 17 20 Blood Pressure 110/41 L 88/42 L Pulse Oximetry 81 L Oxygen Delivery 09/13/24 16:46 09/13/24 16:47 09/13/24 17:00 Temperature Pulse Rate 86 80 74 Respiratory Rate 24 H 19 19 Blood Pressure 95/46 L 86/46 L Pulse Oximetry 81 L 100 Oxygen Delivery 09/13/24 17:01 09/13/24 17:07 09/13/24 17:08 Temperature Pulse Rate 75 75 74 Respiratory Rate 20 17 13 Blood Pressure 86/40 L 103/50 L Pulse Oximetry 88 L 84 L Oxygen Delivery 09/13/24 17:15 09/13/24 18:02 09/13/24 19:00 Temperature 97.6 F 98.2 F Pulse Rate 82 73 90 Respiratory Rate 17 24 H 18 Blood Pressure 103/45 L 120/56 L Pulse Oximetry 94 98 99 Oxygen Delivery 09/13/24 20:00 09/13/24 22:39 09/14/24 00:00 Temperature 97.6 F Pulse Rate 86 67 70 Respiratory Rate 16 Blood Pressure 110/74 Pulse Oximetry 95 Oxygen Delivery 09/14/24 04:00 09/14/24 06:00 Temperature 98.0 F Pulse Rate 63 67 Respiratory Rate 18 Blood Pressure 119/70 Pulse Oximetry 99 Oxygen Delivery Intake/Output Intake/Output: Intake & Output 09/11/24 09/12/24 09/13/24 09/14/24 23:59 23:59 23:59 23:59 Intake Total 2316.7 600 Balance 2316.7 600 Meds/Results Medications: Active Medications Generic Name Dose Route Start Last Admin Trade Name Freq PRN Reason Stop Dose Admin Acetaminophen 650 mg 09/13/24 17:20 Acetaminophen 325 Mg Tablet PO Q4H PRN Mild Pain (1-3) or Fever Dextrose 12.5 gm 09/13/24 23:52 Dextrose 50% 25 Gm/50 Ml Syringe IV PUSH PRN PRN Hypoglycemia Protocol Donepezil HCl 10 mg 09/14/24 09:00 Donepezil Hcl 10 Mg Tablet PO DAILY [facility] Enoxaparin Sodium 40 mg 09/14/24 09:00 Enoxaparin 40 Mg/0.4 Ml Syringe SUB-Q DAILY [facility] Ergocalciferol 50,000 units 09/19/24 09:00 Ergocalciferol 50,000 Units Capsule PO WEEKLY DE Glucagon 1 mg 09/13/24 23:52 Glucagon For Inj 1 Mg Vial IM PRN PRN Hypoglycemia Protocol Glucose 15 gm 09/13/24 23:52 Glucose Oral Gel 15 Gm Of Glucse In 37.5 Gm Tube PO PRN PRN Hypoglycemia Protocol Meropenem 1 gm in 100 mls @ 200 mls/hr 09/14/24 00:00 09/14/24 00:55 IVPB Infused Q12HR [facility] Infusion Albumin Human 100 mls @ 60 mls/hr 09/14/24 00:00 09/14/24 06:02 Albutein IVPB 09/14/24 19:39 60 mls/hr Q6HR DE Administration Dextrose 1,000 mls @ 100 mls/hr 09/13/24 23:52 Dextrose 5% 1,000 Ml IVPB PRN PRN Hypoglycemia Protocol Insulin Aspart 2 - 5 units 09/14/24 08:00 Insulin Aspart (*Bkc) 100 Units/Ml SUB-Q TIDWM [facility] Protocol Insulin Aspart 10 units 09/14/24 08:00 Insulin Aspart (*Bkc) 100 Units/Ml SUB-Q BIDWM [facility] Insulin Aspart 6 units 09/14/24 12:00 Insulin Aspart (*Bkc) 100 Units/Ml SUB-Q DAILY@1200 [facility] Loperamide HCl 2 mg 09/13/24 23:50 Loperamide Hcl 2 Mg Capsule PO PRN PRN Diarrhea Loratadine 10 mg 09/14/24 09:00 Loratadine 10 Mg Tablet PO QAM [facility] Lovastatin 40 mg 09/14/24 21:00 Lovastatin 20 Mg Tablet PO HS [facility] Metformin HCl 500 mg 09/14/24 08:00 Metformin Hcl 500 Mg Tablet PO DAILY@0800 [facility] Miconazole Nitrate 1 applic 09/14/24 09:00 Miconazole Nitrate 2% Cream 30 Gm Tube TOPICAL BID [facility] Montelukast Sodium 10 mg 09/14/24 21:00 Montelukast Sodium 10 Mg Tablet PO QHS [facility] Ondansetron HCl 4 mg 09/13/24 17:20 Ondansetron Inj 4 Mg/2 Ml Vial IV PUSH Q4H PRN Nausea Oxycodone HCl 2.5 mg 09/13/24 23:50 Oxycodone Hcl (*Crx) 2.5 Mg Tab Ir PO Q4H PRN Pain 7-10 Senna/Docusate Sodium 1 tab 09/14/24 09:00 Senna/Docusate Sodium Tablet PO BID [facility] Sitagliptin Phosphate 50 mg 09/14/24 08:00 Sitagliptin Phosphate 50 Mg Tablet PO DAILY@0800 [facility] Radiology Results: ITS Impressions Head CT 09/13/24 14:09 IMPRESSION: 1. Small subacute subdural hematoma overlying left parietal lobe with decrease in size from 07/31/2024. 2. 3 mm intraparenchymal hematoma in right parietal lobe with decrease in size from 07/31/2024. 3. Stable extensive nonspecific cerebral white matter disease, which likely represents chronic small vessel ischemic disease. Chest X-Ray 09/13/24 14:16 IMPRESSION: 1. No acute cardiopulmonary disease. Cervical Spine CT 09/13/24 14:20 IMPRESSION: 1. No fracture. 2. Severe cervical spondylosis. Abdomen/Pelvis CT 09/13/24 14:49 IMPRESSION: 1. No etiology for the patient's symptoms. Chest CTA 09/13/24 16:20 IMPRESSION: 1. No pulmonary embolus. Labs Labs: Laboratory Results - last 24 hr 09/13/24 09/13/24 09/13/24 12:18 12:35 14:27 WBC 13.8 H RBC 3.52 L Hgb 10.1 L D Hct 31.8 L MCV 90.3 MCH 28.7 MCHC 31.8 L RDW 14.3 Plt Count 188 MPV 9.7 Immature Gran % (Auto) Not Reportable Neut % (Auto) Not Reportable Lymph % (Auto) Not Reportable [place] % (Auto) Not Reportable Eos % (Auto) Not Reportable Baso % (Auto) Not Reportable Lymph # (Auto) Not Reportable [place] # (Auto) Not Reportable Eos # (Auto) Not Reportable Baso # (Auto) Not Reportable Abs Immat Gran (auto) Not Reportable Absolute Neuts (auto) Not Reportable Absolute Nucleated RBC Not Reportable Total Counted 100 Neutrophils % (Manual) 73 Band Neutrophils % 19 H Lymphocytes % (Manual) 6.0 L Monocytes % (Manual) 2 L Nucleated RBC % Not Reportable Abs Neuts (Manual) 12.69 H Abs Lymphs (Manual) 0.82 L Abs Monocytes (Manual) 0.27 Platelet Estimate Adequate Schistocytes None seen PT INR APTT D-Dimer Sodium 139 Potassium 2.8 L* Chloride 105 Carbon Dioxide 28 Anion Gap 6 BUN 12 Creatinine 1.10 H Estim Creat Clear Calc Not Reportable Estimated GFR 48 L Glucose 62 L POC Capillary Glucose 71 Hemoglobin A1c Lactic Acid Calcium 8.6 Magnesium 1.5 L Iron TIBC % Saturation Ferritin Total Bilirubin 0.5 AST 23 ALT 19 Alkaline Phosphatase 74 Total Creatine Kinase C-Reactive Protein NT-Pro-B Natriuret Pep Total Protein 6.0 L Albumin 2.9 L Lipase 49 Vitamin B12 Folate Procalcitonin TSH (Reflex) Urine Color Yellow Urine Appearance Cloudy H Urine pH 5.5 Ur Specific [place] 1.012 Urine Protein Trace Urine Glucose (UA) Negative Urine Ketones Trace H Ur Blood (Man) Non-hemolyzed trace H Urine Nitrate Positive H Urine Bilirubin Negative Urine Urobilinogen 0.2 Add Ur Microanalysis Reviewed Leukocyte Esterase Rfl 2+ H Urine RBC 0-2 Urine WBC 51-100 H Urine WBC Clumps Present H Ur Squamous Epith Cells Few Urine Bacteria 4+ H Urine Casts 3-5 Influenza A (RT-PCR) Influenza B (RT-PCR) SARS-CoV-2 RNA (RT-PCR) 09/13/24 09/13/24 09/13/24 14:56 14:57 15:00 WBC RBC Hgb Hct MCV MCH MCHC RDW Plt Count MPV Immature Gran % (Auto) Neut % (Auto) Lymph % (Auto) [place] % (Auto) Eos % (Auto) Baso % (Auto) Lymph # (Auto) [place] # (Auto) Eos # (Auto) Baso # (Auto) Abs Immat Gran (auto) Absolute Neuts (auto) Absolute Nucleated RBC Total Counted Neutrophils % (Manual) Band Neutrophils % Lymphocytes % (Manual) Monocytes % (Manual) Nucleated RBC % Abs Neuts (Manual) Abs Lymphs (Manual) Abs Monocytes (Manual) Platelet Estimate Schistocytes PT 15.6 H INR 1.2 APTT 29.7 D-Dimer 8.57 H Sodium Potassium Chloride Carbon Dioxide Anion Gap BUN Creatinine Estim Creat Clear Calc Estimated GFR Glucose POC Capillary Glucose 112 H Hemoglobin A1c Lactic Acid 3.5 H Calcium Magnesium Iron TIBC % Saturation Ferritin Total Bilirubin AST ALT Alkaline Phosphatase Total Creatine Kinase 100 C-Reactive Protein 4.5 H NT-Pro-B Natriuret Pep 2650 H Total Protein Albumin Lipase Vitamin B12 Folate Procalcitonin TSH (Reflex) Urine Color Urine Appearance Urine pH Ur Specific [place] Urine Protein Urine Glucose (UA) Urine Ketones Ur Blood (Man) Urine Nitrate Urine Bilirubin Urine Urobilinogen Add Ur Microanalysis Leukocyte Esterase Rfl Urine RBC Urine WBC Urine WBC Clumps Ur Squamous Epith Cells Urine Bacteria Urine Casts Influenza A (RT-PCR) Negative Influenza B (RT-PCR) Negative SARS-CoV-2 RNA (RT-PCR) Negative 09/13/24 09/14/24 09/14/24 19:34 01:50 05:42 WBC RBC Hgb Hct MCV MCH MCHC RDW Plt Count MPV Immature Gran % (Auto) Neut % (Auto) Lymph % (Auto) [place] % (Auto) Eos % (Auto) Baso % (Auto) Lymph # (Auto) [place] # (Auto) Eos # (Auto) Baso # (Auto) Abs Immat Gran (auto) Absolute Neuts (auto) Absolute Nucleated RBC Total Counted Neutrophils % (Manual) Band Neutrophils % Lymphocytes % (Manual) Monocytes % (Manual) Nucleated RBC % Abs Neuts (Manual) Abs Lymphs (Manual) Abs Monocytes (Manual) Platelet Estimate Schistocytes PT INR APTT D-Dimer Sodium 137 Potassium 4.3 Chloride 107 Carbon Dioxide 26 Anion Gap 4 BUN 12 Creatinine 1.00 Estim Creat Clear Calc 39 Estimated GFR 53 L Glucose 159 H POC Capillary Glucose 126 H Hemoglobin A1c 6.1 H Lactic Acid 1.8 Calcium 8.0 L Magnesium 2.0 Iron 11 L TIBC 256 L % Saturation 4 L Ferritin 87.70 Total Bilirubin AST ALT Alkaline Phosphatase Total Creatine Kinase C-Reactive Protein NT-Pro-B Natriuret Pep Total Protein Albumin Lipase Vitamin B12 251.0 Folate 3.8 Procalcitonin 34.9 TSH (Reflex) 0.425 L Urine Color Urine Appearance Urine pH Ur Specific [place] Urine Protein Urine Glucose (UA) Urine Ketones Ur Blood (Man) Urine Nitrate Urine Bilirubin Urine Urobilinogen Add Ur Microanalysis Leukocyte Esterase Rfl Urine RBC Urine WBC Urine WBC Clumps Ur Squamous Epith Cells Urine Bacteria Urine Casts Influenza A (RT-PCR) Influenza B (RT-PCR) SARS-CoV-2 RNA (RT-PCR) Quality VTE Prophylaxis VTE prophylaxis: pharmacologic ordered Hospitalist [facility] Advance Care Plan I have confirmed that the patient's Advanced Care Plan is present, code status is documented, or surrogate decision maker is listed in patient medical record.: Yes Medication Reconciliation I have utilized all available resources to obtain, update and review the patients current medications (includes all prescriptions, OTC, herbals, cannabis, and nutritional supplements).: Yes
[2024-09-14 08:46] LABS: Glucose Point of Care 109 mg/dl (65-105)
[2024-09-14] MEDS: metFORMIN HCL 500 MG TABLET PO (08:57)
[2024-09-14] MEDS: LORATADINE 10 MG TABLET PO (08:57)
[2024-09-14] MEDS: DONEPEZIL HCL 10 MG TABLET PO (08:57)
[2024-09-14] MEDS: SENNA/DOCUSATE SODIUM TABLET 1 TAB PO ×3 (08:57→20:20)
[2024-09-14] MEDS: SITagliptin PHOSPHATE 50 MG TABLET PO (08:58)
[2024-09-14] MEDS: polyethylene glycoL 3350 17 GM POWD.PACK PO (08:58)
[2024-09-14] MEDS: MICONAZOLE NITRATE 2% CREAM 30 GM TUBE 1 APPLIC TOPICAL ×2 (08:58→17:41)
[2024-09-14] MEDS: HEPARIN SODIUM 5,000 UNITS/ML VIAL 5000 UNITS SUB-Q ×2 (08:58→20:19)
[2024-09-14] MEDS: IRON SUCROSE COMPLEX 200 MG, IRON SUCROSE COMPLEX 100 MG in SODIUM CHLORIDE 0.9% IV 250 ML 176.67 MG IVPB (08:59)
[2024-09-14 09:33] LABS: Free T4 Free Thyroxine Reflex 1.04 ng/dL (0.78-2.19)
[2024-09-14 12:10] LABS: Glucose Point of Care 134 mg/dl (65-105)
[2024-09-14 12:46] LABS: Total Triiodothyronine (T3) 0.45 NG/ML (0.97-1.69)
[2024-09-14 17:04] LABS: Glucose Point of Care 141 mg/dl (65-105)
[2024-09-14] MEDS: MONTELUKAST SODIUM 10 MG TABLET PO (20:19)
[2024-09-14] MEDS: LOVASTATIN 20 MG TABLET 40 MG PO (20:19)
[2024-09-14 21:19] LABS: Glucose Point of Care 153 mg/dl (65-105)
[2024-09-15] VITALS (9 sets, daily range): BP systolic 130–140; BP diastolic 67–78; PULSE 53–75; RESP 16–18; TEMP 36.4–36.9; O2SAT 99–100
[2024-09-15 05:52] LABS: Hematocrit 29.8 % (37.0-47.0); Hemoglobin 9.2 g/dL (12.0-15.0); Mean Corpuscular HGB Conc 30.9 g/dl (32-36); Mean Corpuscular Hemoglobin 28.3 pg (26-34); Mean Corpuscular Volume 91.7 fl (80-100); Mean Platelet Volume 10.8 fl (7.4-10.4); Platelet Count Result 165 k/mm3 (150-375); Red Blood Count 3.25 M/mm3 (4.2-5.4); Red Cell Distribution Width 14.5 % (11.5-14.5); White Blood Count 8.4 K/mm3 (4.5-10.0)
[2024-09-15 06:08] LABS: Alanine Aminotransferase 10 U/L (6-35); Albumin Level 3.7 g/dL (3.5-5.1); Alkaline Phosphatase 68 U/L (38-126); Anion Gap 8 mmol/L (4-12); Aspartate Amino Transferase 22 U/L (14-36); Bilirubin,Total 0.3 mg/dL (0.2-1.3); Blood Urea Nitrogen 13 mg/dL (7-17); Calcium 9.1 mg/dL (8.4-10.2); Carbon Dioxide 25 mmol/L (22-30); Chloride 105 mmol/L (98-107); Estimated CRCL calculation 43 ml/min; Estimated Glomerular Filt Rate 60; Glucose 111 mg/dL (65-110); Sodium 138 mmol/L (137-145)
[2024-09-15 07:57] LABS: Glucose Point of Care 134 mg/dl (65-105)
[2024-09-15] MEDS: LORATADINE 10 MG TABLET PO (08:35)
[2024-09-15] MEDS: POLYSACCHARIDE IRON COMPLEX 150 MG CAPSULE PO ×2 (08:35→17:35)
[2024-09-15] MEDS: MEROPENEM 1 GM/NS 100 ML 1 GM/100 ML BAG IVPB ×2 (08:35→20:35)
[2024-09-15] MEDS: SITagliptin PHOSPHATE 50 MG TABLET PO (08:35)
[2024-09-15] MEDS: metFORMIN HCL 500 MG TABLET PO (08:35)
[2024-09-15] MEDS: SENNA/DOCUSATE SODIUM TABLET 1 TAB PO ×3 (08:35→20:34)
[2024-09-15] MEDS: DONEPEZIL HCL 10 MG TABLET PO (08:35)
[2024-09-15] MEDS: HEPARIN SODIUM 5,000 UNITS/ML VIAL 5000 UNITS SUB-Q ×2 (08:35→20:34)
[2024-09-15] MEDS: ACETAMINOPHEN 325 MG TABLET 650 MG PO ×2 (08:36→20:35)
[2024-09-15] MEDS: MICONAZOLE NITRATE 2% CREAM 30 GM TUBE 1 APPLIC TOPICAL ×2 (08:36→17:36)
[2024-09-15 12:28] LABS: Glucose Point of Care 143 mg/dl (65-105)
[2024-09-15 16:35] LABS: Glucose Point of Care 150 mg/dl (65-105)
--- NOTE | 2024-09-15 18:03 | PM.IMPN ---
Progress Note: A&P Assessment and Plan (1) Sepsis: Qualifiers: Sepsis type: sepsis due to unspecified organism Sepsis acute organ dysfunction status: without acute organ dysfunction Qualified Code(s): A41.9 - Sepsis, unspecified organism Code(s): A41.9 - Sepsis, unspecified organism Status: Acute Assessment and Plan: improving. - met SIRS criteria on admission: HR, WBC. BP soft at arrival (84/49) - lactic acid: 3.5-> 1.8 - Procalcitonin 34.9 - 30 mL/kg fluid bolus given on admission. - suspected source: Urine. - Continue meropenem - blood cultures drawn on 09/13 NGTD. - Urine culture growing pansensitive Klebs Pneumoniae. - Continue monitor hemodynamic stability (2) UTI (urinary tract infection): Qualifiers: Hematuria presence: without hematuria Urinary tract infection type: acute cystitis Qualified Code(s): N30.00 - Acute cystitis without hematuria Code(s): N39.0 - Urinary tract infection, site not specified Status: Acute Assessment and Plan: - UA: Cloudy, trace ketones, non hemolyzed trace blood, positive nitrates, 2+ leuks, 51-100 WBC, WBC clumps present, few epithelial cells, 4+ bacteria - UC growing pansensitive Klebs Pneumoniae. - Continue meropenem for now and we'll change abx to PO in AM and consider discharge. (3) Nausea & vomiting: Qualifiers: Vomiting type: unspecified Qualified Code(s): R11.2 - Nausea with vomiting, unspecified Code(s): R11.2 - Nausea with vomiting, unspecified Status: Acute Assessment and Plan: - Resolved. - Possibly secondary to sepsis/UTI/hypotension. - head CT 1. Small subacute subdural hematoma overlying left parietal lobe with decrease in size from 07/31/2024. 2. 3 mm intraparenchymal hematoma in right parietal lobe with decrease in size from 07/31/2024. 3. Stable extensive nonspecific cerebral white matter disease, which likely represents chronic small vessel ischemic disease. - abdomen/pelvis CT 1. No etiology for the patient's symptoms. - chest CTA showed no PE and cervical spine CT showed no acute fracture (4) Anemia: Qualifiers: Anemia type: unspecified type Qualified Code(s): D64.9 - Anemia, unspecified Code(s): D64.9 - Anemia, unspecified Status: Acute Assessment and Plan: iron deficiency anemia. - Previously baseline 13.6 on 07/31/2024 - Hgb 10.1 >> 9.2. - RAZA/guaiac negative in ED - iron low, TIBC low, ferritin within normal limits, B12 within normal limit, folic acid within normal limits, TSH low - monitor - transfuse if Hgb less than 7 - Low iron sats and given IV iron replacement. - Continue PO iron replacement. T3 and T4 pending (5) Hypomagnesemia: Code(s): E83.42 - Hypomagnesemia Status: Acute Assessment and Plan: - Replaced and currently wnl. (6) Diabetes: Code(s): E11.9 - Type 2 diabetes mellitus without complications Status: Acute Assessment and Plan: - well controlled - A1C 6.1 - hypoglycemia protocol - POC blood glucose ACHS - home medication: Continue Alogliptin-metformin, NovoLog 10 units daily. Hold Trulicity (NF) - no sliding scale ordered, allergy to lispro insulin. (7) Benign hypertension: Code(s): I10 - Essential (primary) hypertension Status: Chronic Assessment and Plan: - Well controlled currently. - monitor off medications. Plan Diet: Heart healthy GI Prophylaxis: Not currently indicated DVT Prophylaxis: SCDs Lines: Peripheral Code Status: Full code Possible discharge tomorrow. Time Spent With Patient Time with patient: 25 - 35 minutes Subjective Date/time seen: 09/15/24 18:03 Patient sitting on chair and states she feels alright and has no pain or other distressful symptoms. States feels ready to go home. Interval history: Patient sitting on chair and appears to be in no acute distress. Review of Systems Review of Systems: All systems reviewed & are unremarkable except as noted in HPI and below Exam Narrative: HEENT: Atraumatic, PERRL, EOM, anicteric, moist mucus membranes. NECK: Supple. Lungs: Clear bilaterally. Heart: RRR, no murmurs. Abdomen: Soft, non-tender, non-distended, +ve bowel sounds X4 quadrants. Extremities: No clubbing or cyanosis. 2+ edema left foot, 1+ edema duarte. LE. Skin: [place] and moist with no lesions noted. Neuro: Oriented to self and hospital. No focal neuro deficits noted. Psych: Pleasant and co-operative. Objective Data Vital Signs Vital Signs: Vital Signs - 24 hr 09/14/24 20:00 09/14/24 21:07 09/15/24 00:00 Temperature 98.7 F Pulse Rate 58 L 66 53 L Respiratory Rate 18 Blood Pressure 123/67 Pulse Oximetry 100 Oxygen Delivery 09/15/24 04:00 09/15/24 05:46 09/15/24 08:30 Temperature 97.6 F Pulse Rate 54 L 75 Respiratory Rate 18 Blood Pressure 130/78 Pulse Oximetry 99 Oxygen Delivery Room Air 09/15/24 12:58 09/15/24 13:49 09/15/24 14:00 Temperature 98.5 F Pulse Rate 65 Respiratory Rate 18 Blood Pressure 139/69 Pulse Oximetry 100 Oxygen Delivery Room Air Room Air Intake/Output Intake/Output: Intake & Output 09/12/24 09/13/24 09/14/24 09/15/24 23:59 23:59 23:59 23:59 Intake Total 2316.7 2085 660 Balance 2316.7 5 660 Meds/Results Medications: Active Medications Generic Name Dose Route Start Last Admin Trade Name Freq PRN Reason Stop Dose Admin Acetaminophen 650 mg 09/13/24 17:20 09/15/24 08:36 Acetaminophen 325 Mg Tablet PO 650 mg Q4H PRN Administration Mild Pain (1-3) or Fever Dextrose 12.5 gm 09/13/24 23:52 Dextrose 50% 25 Gm/50 Ml Syringe IV PUSH PRN PRN Hypoglycemia Protocol Donepezil HCl 10 mg 09/14/24 09:00 09/15/24 08:35 Donepezil Hcl 10 Mg Tablet PO 10 mg DAILY DE Administration Ergocalciferol 50,000 units 09/19/24 09:00 Ergocalciferol 50,000 Units Capsule PO WEEKLY DE Glucagon 1 mg 09/13/24 23:52 Glucagon For Inj 1 Mg Vial IM PRN PRN Hypoglycemia Protocol Glucose 15 gm 09/13/24 23:52 Glucose Oral Gel 15 Gm Of Glucse In 37.5 Gm Tube PO PRN PRN Hypoglycemia Protocol Heparin Sodium (Porcine) 5,000 units 09/14/24 09:00 09/15/24 08:35 Heparin Sodium 5,000 Units/Ml Vial SUB-Q 5,000 units Q12HR DE Administration Meropenem 1 gm in 100 mls @ 200 mls/hr 09/14/24 00:00 09/15/24 09:05 IVPB Infused Q12HR [facility] Infusion Dextrose 1,000 mls @ 100 mls/hr 09/13/24 23:52 Dextrose 5% 1,000 Ml IVPB PRN PRN Hypoglycemia Protocol Insulin Aspart 2 - 5 units 09/14/24 08:00 09/15/24 17:36 Insulin Aspart (*Bkc) 100 Units/Ml SUB-Q Not Given TIDWM [facility] Protocol Loperamide HCl 2 mg 09/13/24 23:50 Loperamide Hcl 2 Mg Capsule PO PRN PRN Diarrhea Loratadine 10 mg 09/14/24 09:00 09/15/24 08:35 Loratadine 10 Mg Tablet PO 10 mg QAM [facility] Administration Lovastatin 40 mg 09/14/24 21:00 09/14/24 20:19 Lovastatin 20 Mg Tablet PO 40 mg HS [facility] Administration Metformin HCl 500 mg 09/14/24 08:00 09/15/24 08:35 Metformin Hcl 500 Mg Tablet PO 500 mg DAILY@0800 [facility] Administration Miconazole Nitrate 1 applic 09/14/24 09:00 09/15/24 17:36 Miconazole Nitrate 2% Cream 30 Gm Tube TOPICAL 1 applic BID [facility] Administration Montelukast Sodium 10 mg 09/14/24 21:00 09/14/24 20:19 Montelukast Sodium 10 Mg Tablet PO 10 mg QHS [facility] Administration Ondansetron HCl 4 mg 09/13/24 17:20 Ondansetron Inj 4 Mg/2 Ml Vial IV PUSH Q4H PRN Nausea Oxycodone HCl 2.5 mg 09/13/24 23:50 Oxycodone Hcl (*Crx) 2.5 Mg Tab Ir PO Q4H PRN Pain 7-10 Polyethylene Glycol 17 gm 09/14/24 09:00 09/15/24 08:36 Polyethylene Glycol 3350 17 Gm Powd.Pack PO Not Given QAM [facility] Polysaccharide Iron Complex 150 mg 09/15/24 09:00 09/15/24 17:35 Polysaccharide Iron Complex 150 Mg Capsule PO 09/17/24 09:00 150 mg BIDWM [facility] Administration Polysaccharide Iron Complex 150 mg 09/18/24 08:00 Polysaccharide Iron Complex 150 Mg Capsule PO DAILY@0800 [facility] Senna/Docusate Sodium 1 tab 09/14/24 09:00 09/15/24 17:36 Senna/Docusate Sodium Tablet PO 1 tab BID DE Administration Senna/Docusate Sodium 1 tab 09/14/24 21:00 09/14/24 20:20 Senna/Docusate Sodium Tablet PO 1 tab HS DE Administration Sitagliptin Phosphate 50 mg 09/14/24 08:00 09/15/24 08:35 Sitagliptin Phosphate 50 Mg Tablet PO 50 mg DAILY@0800 DE Administration Radiology Results: ITS Impressions Head CT 09/13/24 14:09 IMPRESSION: 1. Small subacute subdural hematoma overlying left parietal lobe with decrease in size from 07/31/2024. 2. 3 mm intraparenchymal hematoma in right parietal lobe with decrease in size from 07/31/2024. 3. Stable extensive nonspecific cerebral white matter disease, which likely represents chronic small vessel ischemic disease. Chest X-Ray 09/13/24 14:16 IMPRESSION: 1. No acute cardiopulmonary disease. Cervical Spine CT 09/13/24 14:20 IMPRESSION: 1. No fracture. 2. Severe cervical spondylosis. Abdomen/Pelvis CT 09/13/24 14:49 IMPRESSION: 1. No etiology for the patient's symptoms. Chest CTA 09/13/24 16:20 IMPRESSION: 1. No pulmonary embolus. Labs Labs: Laboratory Results - last 24 hr 09/14/24 09/15/24 09/15/24 21:14 05:21 07:54 WBC 8.4 RBC 3.25 L Hgb 9.2 L Hct 29.8 L MCV 91.7 MCH 28.3 MCHC 30.9 L RDW 14.5 Plt Count 165 MPV 10.8 H Sodium 138 Potassium 4.0 Chloride 105 Carbon Dioxide 25 Anion Gap 8 BUN 13 Creatinine 0.90 Estim Creat Clear Calc 43 Estimated GFR 60 Glucose 111 H POC Capillary Glucose 153 H 134 H Calcium 9.1 Total Bilirubin 0.3 AST 22 ALT 10 Alkaline Phosphatase 68 Total Protein 6.0 L Albumin 3.7 09/15/24 09/15/24 12:24 16:32 WBC RBC Hgb Hct MCV MCH MCHC RDW Plt Count MPV Sodium Potassium Chloride Carbon Dioxide Anion Gap BUN Creatinine Estim Creat Clear Calc Estimated GFR Glucose POC Capillary Glucose 143 H 150 H Calcium Total Bilirubin AST ALT Alkaline Phosphatase Total Protein Albumin Quality VTE Prophylaxis VTE prophylaxis: pharmacologic ordered Hospitalist MIPS Advance Care Plan I have confirmed that the patient's Advanced Care Plan is present, code status is documented, or surrogate decision maker is listed in patient medical record.: Yes Medication Reconciliation I have utilized all available resources to obtain, update and review the patients current medications (includes all prescriptions, OTC, herbals, cannabis, and nutritional supplements).: Yes
[2024-09-15] MEDS: MONTELUKAST SODIUM 10 MG TABLET PO (20:34)
[2024-09-15] MEDS: LOVASTATIN 20 MG TABLET 40 MG PO (20:34)
[2024-09-15 20:43] LABS: Glucose Point of Care 192 mg/dl (65-105)
[2024-09-16 06:00] VITALS: BP 130/61; PULSE 71; RESP 18; TEMP 36.6; O2SAT 98
[2024-09-16] MEDS: MEROPENEM 1 GM/NS 100 ML 1 GM/100 ML BAG IVPB (08:55)
[2024-09-16] MEDS: DONEPEZIL HCL 10 MG TABLET PO (08:59)
[2024-09-16] MEDS: LORATADINE 10 MG TABLET PO (09:00)
[2024-09-16] MEDS: polyethylene glycoL 3350 17 GM POWD.PACK PO (09:00)
[2024-09-16] MEDS: POLYSACCHARIDE IRON COMPLEX 150 MG CAPSULE PO (09:01)
[2024-09-16] MEDS: SENNA/DOCUSATE SODIUM TABLET 1 TAB PO (09:01)
[2024-09-16] MEDS: MICONAZOLE NITRATE 2% CREAM 30 GM TUBE 1 APPLIC TOPICAL (09:02)
[2024-09-16] MEDS: SITagliptin PHOSPHATE 50 MG TABLET PO (09:02)
[2024-09-16] MEDS: metFORMIN HCL 500 MG TABLET PO (09:02)
[2024-09-16 09:08] LABS: Glucose Point of Care 111 mg/dl (65-105)
[2024-09-16] MEDS: HEPARIN SODIUM 5,000 UNITS/ML VIAL 5000 UNITS SUB-Q (11:03)
--- NOTE | 2024-09-16 11:52 | P.DS_ITS ---
DS: Admitting Diagnosis Discharge Date 09/16/2024 Admitting Diagnosis Nausea and vomiting. DS: Discharge Diagnosis Discharge Diagnosis (1) Sepsis: Qualifiers: Sepsis type: sepsis due to unspecified organism Sepsis acute organ dysfunction status: without acute organ dysfunction Qualified Code(s): A41.9 - Sepsis, unspecified organism Code(s): A41.9 - Sepsis, unspecified organism Status: Acute Assessment and Plan: Resolved or progressing towards resolution. - met SIRS criteria on admission: HR, WBC. BP soft at arrival (84/49) - lactic acid: 3.5-> 1.8 - Procalcitonin 34.9 - 30 mL/kg fluid bolus given on admission. - suspected source: Urine. - Urine culture growing pansensitive Klebs Pneumoniae. - Treated with meropenem IV and will be discharged on Cipro PO to complete treatment. - blood cultures drawn on 09/13 NGTD. - No hemodynamic instability noted inpatient. (2) UTI (urinary tract infection): Qualifiers: Hematuria presence: without hematuria Urinary tract infection type: acute cystitis Qualified Code(s): N30.00 - Acute cystitis without hematuria Code(s): N39.0 - Urinary tract infection, site not specified Status: Acute Assessment and Plan: - UA: Cloudy, trace ketones, non hemolyzed trace blood, positive nitrates, 2+ leuks, 51-100 WBC, WBC clumps present, few epithelial cells, 4+ bacteria - UC growing pansensitive Klebs Pneumoniae. - Treated with meropenem and will be discharged on Cipro to complete abx treatment. (3) Nausea & vomiting: Qualifiers: Vomiting type: unspecified Qualified Code(s): R11.2 - Nausea with vomiting, unspecified Code(s): R11.2 - Nausea with vomiting, unspecified Status: Acute Assessment and Plan: - Resolved inpatient. - Possibly secondary to sepsis/UTI/hypotension. - head CT 1. Small subacute subdural hematoma overlying left parietal lobe with decrease in size from 07/31/2024. 2. 3 mm intraparenchymal hematoma in right parietal lobe with decrease in size from 07/31/2024. 3. Stable extensive nonspecific cerebral white matter disease, which likely represents chronic small vessel ischemic disease. - abdomen/pelvis CT 1. No etiology for the patient's symptoms. - chest CTA showed no PE and cervical spine CT showed no acute fracture. (4) Anemia: Qualifiers: Anemia type: unspecified type Qualified Code(s): D64.9 - Anemia, unspecified Code(s): D64.9 - Anemia, unspecified Status: Acute Assessment and Plan: iron deficiency anemia. - Previously baseline 13.6 on 07/31/2024 - Hgb 10.1 >> 9.2. - RAZA/guaiac negative in ED - iron low, TIBC low, ferritin wnl, B12 wnl, folic acid wnl. - Low iron sats and given IV iron replacement. - Hgb monitored inpatient and remained stable. - Continue PO iron replacement at home. (5) Hypomagnesemia: Code(s): E83.42 - Hypomagnesemia Status: Acute Assessment and Plan: - Replaced and wnl prior to discharge. (6) Diabetes: Code(s): E11.9 - Type 2 diabetes mellitus without complications Status: Acute Assessment and Plan: - well controlled inpatient. - A1C 6.1 - hypoglycemia protocol - POC blood glucose ACHS - home medication continued inpatient: Alogliptin-metformin, NovoLog 10 units daily. [facility] held inpatient(NF) - no sliding scale ordered, allergy to lispro insulin. (7) Benign hypertension: Code(s): I10 - Essential (primary) hypertension Status: Chronic Assessment and Plan: - Well controlled inpatient without BP medications. Plan Discharge back to Assisted Living. DS: Summary Hospital Course Reason for hospitalization: Nausea and Vomiting. Hospital Course: Patient presented to the ER from the SNF that she resides with reports weakness related to nausea and vomiting. Initial work-up was consistent with Sepsis, and sepsis protocol was activated with fluid bolus, blood and urine cultures, and broad-spectrum IV abx. Her chemistry mainly showed hypokalemia and hypomagnesemia, which were corrected and wnl prior to discharge. Patient's UA was also consistent with possible UTI, which was suspected to be the source of infection. Patient had CT head done that was negative for acute, showing improvement in L. Frontoparietal SDH and improvement in R. Parietal intracerebral hematoma as well, compared to previous imaging 07/31/24, following pt's previous fall episode. CT of the abdomen/pelvis showed no etiology for the patient's symptoms. Patient was admitted for treatment of her infection and stabilization of her symptoms, suspected to be likely secondary to Sepsis UTI. Patient has been treated with IV abx, in addition to IVF hydration. Her urine culture has grown pansensitive Klebs Pneumoniae, and pt will be discharged on Cipro PO to complete abx treatment. Pt was also noted with low iron saturation and she was given IV iron and started on scheduled PO iron for supplementation. Patient had no symptoms of anemia, with her RAZA stool guaiac also turning out negative. All her other electrolytes were corrected and her labs remained fairly wnl inpatient. Her blood-glucose levels also remained controlled inpatient on home medications, with her nausea and vomiting resolving with supportive care. Patient is currently back to baseline and wants to go back home. She's not in any acute distress and she's medically stable for discharge, with no acute distress noted or reported prior to discharge. Patient at her baseline level of functioning and safe for transfer back to her SNF after working with PT/OT. Pt always requires SBA due to cognitive impairment, which will be continued at her SNF. Status at Discharge Functional status at discharge: uses cane/walker Overall status at discharge: patient is progressing back to baseline Time Spent with Patient Time attestation: Total time spent providing and/or coordinating discharge services: Time spent: Greater than 30 minutes Exam Narrative: HEENT: Atraumatic, PERRL, EOM, anicteric, moist mucus membranes. NECK: Supple. Lungs: Clear bilaterally. Heart: RRR, no murmurs. Abdomen: Soft, non-tender, non-distended, +ve bowel sounds X4 quadrants. Extremities: No clubbing or cyanosis. 2+ edema left foot, 1+ edema duarte. LE. Skin: [place] and moist with no lesions noted. Neuro: Oriented to self and hospital. No focal neuro deficits noted. Psych: Pleasant and co-operative. DS: Data Data Completed and Pending Labs on day of discharge: Labs from last 24 hours 09/16/24 09/15/24 09/15/24 08:54 20:10 16:32 POC Capillary Glucose 111 H 192 H 150 H 09/15/24 12:24 POC Capillary Glucose 143 H Preliminary micro results at discharge 09/13/24 14:57 Blood Culture - Preliminary Blood 09/13/24 15:12 Blood Culture - Preliminary Blood Discharge Plan Discharge Attending physician on discharge: Milton Gómez Discharging Clinician: Christine Rios Anticipated Discharge Date/Time: 09/16/24 12:53 Patient Disposition: SNF Activity: as tolerated Diet: heart healthy and diabetic Stand Alone Forms: General Discharge Information Discharge Medications: New polysaccharide iron complex 150 mg iron Capsule 150 mg PO BIDWM Qty: 30 0RF ciprofloxacin HCl 500 mg tablet 500 mg PO Q12H Qty: 7 0RF Continued levocetirizine [Xyzal] 5 mg tablet 5 mg PO DAILY Qty: 90 3RF montelukast [Singulair] 10 mg tablet 10 mg PO QHS Qty: 90 3RF lovastatin 40 mg tablet 40 mg PO HS sennosides-docusate sodium 8.6-50 mg Tablet 1 tablet PO BID loperamide 2 mg Tablet 2 mg PO PRN PRN (Reason: Diarrhea) acetaminophen 650 mg Tablet 650 mg PO Q6H PRN (Reason: Pain) ergocalciferol (vitamin D2) 1,250 mcg (50,000 unit) capsule 1,250 mcg PO WEEKLY Rx Instructions: Wednesdays ketoconazole 2 % cream 1 applic TOPICAL BID Rx Instructions: skin folds on abd and buttocks oxycodone 5 mg Tablet 2.5 mg PO Q4H PRN (Reason: Pain) enoxaparin 40 mg/0.4 mL Syringe 40 mg SUBCUT DAILY alogliptin-metformin 12.5-500 mg tablet 1 tablet PO DAILY insulin aspart U-100 [Novolog FlexPen U-100 Insulin] 100 unit/mL (3 mL) insulin pen 10 unit subcut DAILY Rx Instructions: Novolog to be 10 units before breakfast, 6 units before lunch, and 10 unit before dinner. Sliding scale with each meal. 200-250: 1 units 251-300: 2 units 301-350: 3 units 351-400: 4 units (DME) blood-glucose meter [OneTouch Verio IQ Meter] Misc See Rx Instructions .ROUTE .MEDSUPPLY Qty: 1 0RF Rx Instructions: As directed Novofine Autocover 30 gauge x 1/3 needle See Rx Instructions .ROUTE .COMPLEX Qty: 100 0RF Dose Instruction: PEN NEEDLE USED FOR SUB-Q INJECTION Rx Instructions: PEN NEEDLE USED FOR SUB-Q INJECTION (DME) Depend Fit-Flex Underwear Misc See Rx Instructions .ROUTE .MEDSUPPLY Qty: 90 3RF Rx Instructions: As directed donepezil 10 mg tablet 10 mg PO DAILY Trulicity 1.5 mg/0.5 mL pen injector 1.5 mg subcut WEEKLY Qty: 2 6RF Rx Instructions: Tuesday (DME) OneTouch Verio test strips Strip See Rx Instructions .ROUTE .COMPLEX Qty: 200 3RF Dose Instruction: TEST BEFORE MEALS AND AT BEDTIME Rx Instructions: TEST BEFORE MEALS AND AT BEDTIME Date of admission: 09/13/24 18:48 Primary Care Provider: CourtneySong Admitting Provider: Kadie Spencer Attending physician on admission: Kadie Spencer Condition: Stable Quality If No VTE Prophylaxis Answer both mechanical and pharmacologic: Reason no mechanical VTE proph: low risk/not indicated Reason no pharmacologic proph: low risk/not indicated Hospitalist MIPS Heart Failure (Exclusion) Patient has history of Heart Transplant or Left Ventricular Assistive Device?: No IF YES, STOP HERE Heart Failure (Qualifier) Patient has current or prior documentation of LVEF less than or equal to 40%, or mod/servere depressed LVSF?: No IF NO, STOP HERE
[2024-09-16 12:08] LABS: Glucose Point of Care 198 mg/dl (65-105)
[2024-09-16 14:05] VITALS: BP 128/64; PULSE 86; RESP 16; TEMP 36.3; O2SAT 96
== END 2024-09-16 14:20 | DRG 872 ==
LOC: ANHED 17:20 → ANH2MED 18:20
PROVIDERS: Nurse Practitioner Gerontology; Student in an Organized Health Care Education/Training Program; Admitting Provider Internal Medicine; Emergency Provider Student in an Organized Health Care Education/Training Program; PCP Physician Assistant; Visit Provider Nurse Practitioner Adult Health
DX: A41.9 Sepsis, unspecified organism (principal); N39.0 Urinary tract infection, site not specified; I12.9 Hypertensive chronic kidney disease with stage 1 through stage 4 chronic kidney disease, or unspecified chronic kidney disease; N18.9 Chronic kidney disease, unspecified; B96.1 Klebsiella pneumoniae [K. pneumoniae] as the cause of diseases classified elsewhere; D64.9 Anemia, unspecified; E11.22 Type 2 diabetes mellitus with diabetic chronic kidney disease; E87.6 Hypokalemia; E83.42 Hypomagnesemia; E78.00 Pure hypercholesterolemia, unspecified; E78.2 Mixed hyperlipidemia; K21.9 Gastro-esophageal reflux disease without esophagitis; L89.151 Pressure ulcer of sacral region, stage 1; M81.0 Age-related osteoporosis without current pathological fracture; M79.7 Fibromyalgia; G30.9 Alzheimer's disease, unspecified; F02.80 Dementia in other diseases classified elsewhere, unspecified severity, without behavioral disturbance, psychotic disturbance, mood disturbance, and anxiety; Z20.822 Contact with and (suspected) exposure to COVID-19; Z96.652 Presence of left artificial knee joint; S72.002D Fracture of unspecified part of neck of left femur, subsequent encounter for closed fracture with routine healing; Z79.4 Long term (current) use of insulin
CPT/HCPCS: 36415; 70450; 71045; 71275; 72125; 74177; 80048; 80053; 81001; 82550; 82607; 82728; 82746; 82948; 83036; 83540; 83550; 83605; 83690; 83735; 83880; 84145; 84436; 84439; 84443; 84480; 85025; 85027; 85380; 85610; 85730; 86140; 87040; 87086; 87186; 87636; 93005; 96361; 96365; 96366; 96367; 96375; 97161; 97165; 99285; A9270; G0378; J1644; J1756; J2185; J2543; J3475; J3480; J7030; J7050; P9047; Q9967